=== PATIENT | female | born 1960 | race Caucasian/White ===

== ENCOUNTER 2017-12-21 18:41 | Inpatient (IN) | payer OTHER ==
--- NOTE | 2017-12-21 19:17 | ED ---
Benji Alvarez Tiffany, scribed for Chaz Mera MD on 12/21/17 at 1858 . Neurological HPI - HPI Summary HPI Summary: 57 year old Alondra TOBIAS from [place] [facility] to [facility] complains of reoccurring focal seizures for two days. Symptoms aggravated by nothing. Symptoms alleviated by nothing. Given Keppra and Ativan [facility]. Hx seizure since 2002. On Keppra. - History of Current Complaint Chief Complaint: EDSeizure Stated Complaint: SEIZURES Time Seen by Provider: 12/21/17 18:48 Hx Obtained From: Patient Onset/Duration: Resolved, Worse Since - 2 days ago Aggravating: Nothing Alleviating: Nothing - Allergy/Home Medications Allergies/Adverse Reactions: Allergies Allergy/AdvReac Type Severity Reaction Status Date / Time topiramate [From Topamax] Allergy Itching Verified 12/21/17 18:50 Home Medications: Home Medications Brivaracetam [Briviact] 50 mg PO BID 12/21/17 [History Confirmed 12/21/17] Naproxen [Naproxen 500 mg tab] 500 mg PO Q12H 12/21/17 [History Confirmed ] levETIRAcetam TAB* [Keppra TAB*] 1,000 mg PO BID 12/21/17 [History Confirmed 01/31] PMH/Surg Hx/FS Hx/Imm Hx Previously Healthy: No Endocrine/Hematology History: Denies: Hx Diabetes Sensory History: Denies: Hx Deafness EENT History: Denies: Hx Deafness Neurological History: Reports: Hx Seizures - Since 2002, Other Neuro Impairments /Disorders - Hx intracranial hemorrhage in 1999 - Surgical History Surgery Procedure, Year, and Place: Craniotomy in 1999 Infectious Disease History: No Infectious Disease History: Denies: Traveled Outside the [place] in Last 30 Days - Family History Known Family History: Positive: Other - Reviewed and non-contributory - Social History Alcohol Use: None Hx Substance Use: No Substance Use Type: Reports: None Hx Tobacco Use: Yes Smoking Status (MU): Smoker, Current Status Unknown Review of Systems Negative: Fever Neurological: Other - Seizure All Other Systems Reviewed And Are Negative: Yes Physical Exam - Summary Physical Exam Summary: VITAL SIGNS: Reviewed. GENERAL: Patient is a well-developed and nourished female who is lying comfortable in the stretcher. Patient is not in any acute respiratory distress. She is slow in response. HEAD AND FACE: No signs of trauma. No ecchymosis, hematomas or skull depressions. No sinus tenderness. EYES: PERRLA, EOMI x 2, No injected conjunctiva, no nystagmus. EARS: Hearing grossly intact. Ear canals and tympanic membranes are within normal limits. MOUTH: Oropharynx within normal limits. NECK: Supple, trachea is midline, no adenopathy, no JVD, no carotid bruit, no c- spine tenderness, neck with full ROM. CHEST: Symmetric, no tenderness at palpation LUNGS: Clear to auscultation bilaterally. No wheezing or crackles. CVS: Regular rate and rhythm, S1 and S2 present, no murmurs or gallops appreciated. ABDOMEN: Soft, non-tender. No signs of distention. No rebound no guarding, and no masses palpated. Bowel sounds are normal. EXTREMITIES: FROM in all major joints, no edema, no cyanosis or clubbing. NEURO: Alert and oriented x 3. No acute neurological deficits. Speech is normal and follows commands. SKIN: Dry and warm Triage Information Reviewed: Yes Vital Signs On Initial Exam: Initial Vitals Temp Pulse Resp BP Pulse Ox 99.2 F 97 15 106/72 96 12/21/17 18:46 12/21/17 18:46 12/21/17 18:46 12/21/17 18:46 12/21/17 18:46 Vital Signs Reviewed: Yes Diagnostics - Vital Signs Vital Signs Temp Pulse Resp BP Pulse Ox 12/21/17 18:46 99.2 F 97 15 106/72 96 - Laboratory Lab Statement: Any lab studies that have been ordered have been reviewed, and results considered in the medical decision making process. Course/Dx - Course Assessment/Plan: This patient is a 57-year-old female with history of seizures KEPPRA [facility] Apparently the patient continues to have partial seizures when she has the twitching of the upper extremities and and stares blank. Patients has been having multiple episodes since this morning.. Chest x-ray which is read by radiology no acute pathology. X-ray of the hip and pelvis with no fracture dislocation. Patient also had a head CT which shows no acute pathology. Blood work without any significant abnormality except for WBCs of 10.9, no bands, CK of 607. EKG shows a sinus tachycardia 112 bpm without any stimulations. The patient was accepted by Dr. Chang for the transfer to the emergency department. He reports that Dr. Vang is aware and he requested a EEG. Plan the ER course the patient is hemodynamically stable and she is alert and oriented 3. The patient was given IV Keppra and Ativan at Hospital. At this time I discussed the case with Dr. Vang and he requests for the patient to be admitted to the hospitalist and to get an EEG tomorrow morning. I discussed the case with Dr. Severino from the hospitalist services and accepted the patient for admission. - Differential Dx Differential Diagnoses Neuro: Positive: Cerebrovascular Accident, Seizure Disorder, Transient Ischemic Attack - Diagnoses Provider Diagnoses: Seizures Discharge - Sign-Out/Discharge Documenting (check all that apply): Discharge/Admit/Transfer - Discharge Plan Condition: Stable Disposition: ADMITTED TO [facility] Referrals: No Primary Care Phys,NOPCP [Primary Care Provider] - - Billing Disposition and Condition Condition: STABLE Disposition: Admitted to [facility] The documentation as recorded by the Benji sales Tiffany accurately reflects the service I personally performed and the decisions made by me, Chaz Mera MD.
[2017-12-21] MEDS ORDERED: Ondansetron 40 MG VIAL* 2 MG/ML 20 ML VIAL IV PRN (20:11)
[2017-12-21] MEDS ORDERED: LORazepam INJ* 2 MG/ML 1 ML VIAL IV PUSH PRN (20:11)
[2017-12-21] MEDS ORDERED: levETIRAcetam TAB* 500 MG PO SCH ×2 (20:13→21:00)
[2017-12-21] MEDS ORDERED: Albuterol 2.5 MG/3 ML NEB.SOL* (0.083%) INH PRN (20:36)
[2017-12-21 21:08] LABS: ABS Basophils 0 10^3/ul (0-0.2); ABS Eosinophils 0.1 10^3/ul (0-0.6); ABS Lymphocytes 1.2 10^3/ul (1.0-4.8); ABS Monocytes 0.8 10^3/ul (0-0.8); ABS Neutrophils 7.2 10^3/ul (1.5-7.7); ABS Nucleated RBC 0 10^3/ul; Eosinophil % 0.9 % (0-6); Hematocrit 41 % (35-47); Hemoglobin 13.8 g/dl (12.0-16.0); Lymphocyte % 12.7 % (25-47); Mean Corpuscular HGB Conc 34 g/dl (31-36); Mean Corpuscular Hemoglobin 33 pg (27-31); Mean Corpuscular Volume 96 fL (80-97); Mean Platelet Volume 8.8 um3 (7.4-10.4); Nucleated Red Blood Cells % 0.1; Platelet Count 227 10^3/ul (150-450); Red Blood Count 4.23 10^6/ul (4.0-5.4); Red Cell Distribution Width 13 % (10.5-15); White Blood Count 9.3 10^3/ul (3.5-10.8)
[2017-12-21] MEDS: levETIRAcetam TAB* 500 MG PO SCH ×2 (21:08→22:25)
--- NOTE | 2017-12-21 21:12 | RAD ---
Indication: Fall, hip pain. CT of the pelvis was performed in the axial plane. Sagittal and coronal reconstructed images were obtained. The sacrum demonstrates no fracture although there is angulation of the coccygeal segment. This is likely chronic changes. The visualized lumbar spine demonstrates no fracture of the bilateral defects are noted in the pars interarticularis bilaterally consistent with spondylolysis. The pelvic ring is intact. No fracture of the superior inferior pubic rami is noted. No fracture of the femur is noted. IMPRESSION: No fracture of the sacrum or coccyx is noted. No fracture of the pelvis or hips are noted. Defect in the pars interarticularis at L5 bilaterally consistent with bilateral spondylolysis.
[2017-12-21 21:26] LABS: EGFR Non-African American 80.2 (>60)
[2017-12-21 21:37] LABS: Urine Appearance Cloudy; Urine Blood 2+ (Negative); Urine Color Yellow; Urine Ketones 1+ (Negative); Urine Protein 1+(30 mg/dL) (Negative); Urine Specific Gravity 1.021 (1.010-1.030); Urine Urobilinogen Negative (Negative)
[2017-12-21] MEDS: BRIVARACETAM 50 MG PO SCH (22:29)
[2017-12-21] MEDS: NS 0.9% 1000 ML* 1,000 ML IV SCH ×2 (22:31→23:15)
[2017-12-21] MEDS: Nicotine PATCH 14 MG/24 HR* PATCH TRANSDERM SCH (22:32)
--- NOTE | 2017-12-22 00:20 | PN ---
Hospitalist Progress Note Date of Service: 12/22/17 Called to bedside as patient having episodes of frequent tremors. Patient will be talking and a and o times three than will have episode of becoming noverbal and eyes closing where her lip starts to quiver and right arm starts to have tremor as well. The episodes last 1 minute she has had 8 episodes now. Gave 0.5 mg ativan to attempt to break cycle however pt continued with another episode. Call Dr Vang giving depakote. After these episode patient is awake and alert. and none focal. Call my attending to bedside to fransico. He agrees that this could be partial seizure. will try depakote and continue to follow.
[2017-12-22] MEDS ORDERED: Valproic Acid IV(*) 750 MG in NS 0.9% 100 ML* 100 ML IVPB ONE (00:30)
[2017-12-22] MEDS ORDERED: cefTRIAXone(*) 1 GM in NS 0.9% 50 ML* 50 ML IVPB SCH (00:30)
--- NOTE | 2017-12-22 02:32 | HP ---
CC: Dr. Mishra; Dr. Vang; Dr. Branch * HISTORY AND PHYSICAL: DATE OF ADMISSION: 12/21/17 PRIMARY CARE PROVIDER: Dr. Mishra [facility]. ATTENDING PHYSICIAN WHILE IN THE HOSPITAL: Dr. Froylan Severino * report dictated by Ac Looney NP). CONSULTING NEUROLOGIST: Dr. Vang. PRIMARY NEUROLOGIST: Dr. Branch. CHIEF COMPLAINT: Seizures. HISTORY OF PRESENT ILLNESS: Ms. Briones is a 57-year-old female patient with a known history of seizures. She said she also has a history of COPD and depression. She said she has been having seizures since 2002. According to the Neurology notes, she underwent a craniotomy for evacuation of a hematoma. She has had intermittent seizures since then. However, since in the middle of beginning of this year, she has had about 20 to 30 seizures according to the seizure log that she had given to Dr. Branch. She had been taking Keppra. In addition to this, also taking Briviact. She states that over the last 2 to 3 days, she has been having again increasing seizure-like activity. She says that she does get an aura with these episodes sometimes, sometimes she remembers when these seizures occur and other times she does not. She says she has fallen recently with these seizure activities. She said that she has not had any recent fevers, chills. There has been no vomiting, abdominal pain. No dysuria or frequency. She does state that at times she does have a headache prior to the seizure. She says that she is really unable to tell me how many she has had. She definitely thinks that she has had at least 3. Her friend was concerned that was with her today and basically brought her to [facility] and she was transferred here for further neurological care. She has had EEGs in the past. They have showed epileptic discharges. Her last EEG that I have access to is from 2016, which showed slow wave discharge consistent with complex partial epilepsy. She did hit her head in March of last fall and she was seen in our ER for that, but no other head trauma was reported to me today. She says she has been taking her medications. She denies any illicit drug use or any alcohol abuse, but because of the increasing frequency of seizure, she came to our ER and we were asked to evaluate for admission. PAST MEDICAL HISTORY: Significant for: 1. Seizures. 2. Depression. 3. COPD. 4. She has had intracranial hematoma. PAST SURGICAL HISTORY: 1. She has had a craniotomy. 2. Tubal ligation. MEDICATIONS: Home medications include: 1. Keppra 1000 mg p.o. b.i.d. 2. Briviact 50 mg p.o. b.i.d. 3. Naproxen 500 mg p.o. every 12 hours. ALLERGIES TO MEDICATIONS: She is denying. FAMILY HISTORY: Mother had a history of cancer and father had a history of diabetes. SOCIAL HISTORY: She does smoke about half a pack a day. She has been smoking since she was about 17. She does not drink alcohol. She denied recreational drug abuse. REVIEW OF SYSTEMS: There was no documented fever. She denies having any significant weight change. There is no double vision. She denies having any significant ear discharge. She denies having any rhinorrhea. No sore throat. No thyroid enlargement. Denies having any chest pain. There is no orthopnea. She denies having any nocturnal dyspnea. There is no abdominal pain. There is no nausea, no vomiting. There is no dysuria, no frequency. There was seizure that has been intermittent and episode of loss of consciousness. Review of 14 systems completed, all others negative. PHYSICAL EXAMINATION GENERAL: At this time, Ms. Briones is a 57-year-old female patient. She is sitting in the ED stretcher. She does not appear to be in any acute distress. VITAL SIGNS: Blood pressure 106/71, pulse 97, respirations were 15, O2 sat 96% , temperature 99.2. HEENT: Head: Atraumatic, normocephalic. Eyes: EOMs are intact. Sclerae anicteric and not pale. Throat: Oral mucosa appears to be moist. No oropharyngeal erythema. NECK: Supple. LUNGS: Clear. No wheezes, rales, or rhonchi. HEART: Sounds S1, S2. She does have a regular rate and rhythm. No murmurs, rubs, or gallops. ABDOMEN: Soft, flat, nontender. Bowel sounds are present. EXTREMITIES: Pulses are 2+ throughout. She does have a significant amount of pain with lifting the left lower extremity off the bed. It is mostly in the groin and pelvic area when she does this. No peripheral edema and distal CSM checks are intact. NEUROLOGIC: She has had intermittent episodes, while I was examining her, where she does start picking and pulling at things where she just saying words, but they are nonsensical and not in context. In addition to this, it is noted when she has one of these episodes, they last a minute to two minutes, then she is out of it and she is awake, alert, and oriented x3, but when she does have these episodes, it is noted that her heart rate goes up to 100s and she is nonfocal. There was 1 episode that she had with me where her lips were quivering and her knees appeared to be shaking. When she is out of the episode , she is awake, alert, she is oriented x3. Her speech is clear. Her tongue is midline. She had [id number] intact bilaterally. Aovb-nq-ikms intact bilaterally with the exception on the left side because it caused her significant pain to move that leg, but there were no gross focal deficits. SKIN: Intact. She does have ecchymosis to bilateral knees. DIAGNOSTIC STUDIES/LAB DATA: Labs, these are from [facility], are revealing a WBC of 10.9, RBC of 4.21, hemoglobin 13.7, hematocrit of 40, platelet count is 219. Glucose is 101, BUN 12, creatinine of 0.7, her sodium was 135, potassium is 4.1, chloride of 98, bicarb 26, calcium 8.7. AST 29, ALT 29, alk phos 160. Her CK was 607. Troponin was negative. Keppra level was pending. She did have pelvis x-ray, which shows degenerative changes without acute fracture or dislocation noted on the single frontal view. Chest x-ray showed limited study, does not demonstrate evidence of significant acute pulmonary disease. She had a CT brain without contrast, showed no evidence of acute intracranial pathology. She did have an EKG over there as well, which is showing sinus tachycardia with a rate of 112, no ST elevations or T-wave inversions were noted. Old medical records were reviewed. ASSESSMENT AND PLAN: Ms. Briones is a 57-year-old female patient with a history of seizure, also with a history of intracranial hematoma, status post craniotomy. She has been having intermittent seizures since 2002; however, over the last several months, she has had increasing frequency of seizures particularly over the last 2 to 3 days. We were asked to evaluate for admission. She will be admitted under inpatient status for: 1. Seizures. At this point, I did touch base with Dr. Vang. She got 500 mg IV at [facility] and she got 0.[address] Vang recommended giving another gram of Keppra here tonight p.o. She is able to take p.o. Continue her Briviact. In addition to this, I am sending off levels. CT brain was negative. We will get an EEG tomorrow. I am repeating labs, checking her CK at it was mildly elevated. I will check her Keppra level. Get the TSH in addition to this and check UA to make sure there is no underlying infection and we will continue to follow her. I have ordered seizure precautions and neurological checks. I am placing her on telemetry and again Neuro will be following. If she continues to have seizures throughout the night, then certainly we will reevaluate and see if Neuro wants to add on any agents, but at this point because she had these symptoms, the episodes are short lasting and she is not really postictal afterwards, we felt that we will continue her meds for now and observe. 2. Depression. Continue meds as prescribed and supportive care. 3. History of chronic obstructive pulmonary disease. I will order p.r.n. albuterol and I did order nicotine patch. 4. Tobacco abuse. I will order nicotine patch. 5. DVT prophylaxis. Because of history of intracranial hemorrhage, just going to put her on heparin subcu. 6. Code status. Full code. 7. Fluids, electrolytes, nutrition. She can have a regular diet. TIME SPENT: On admission was 60 minutes, greater than half of the time was spent [id number] with the patient obtaining my history and physical; other half of the time was spent going over the plan of care with the patient, implementing plan of care. I did discuss the plan of care with my attending, Dr. Severino; he is in agreement. AC LOONEY, KENNY [id number]/CPS #: [id number] [facility] CENTERHaim
[2017-12-22 05:38] LABS: ABS Basophils 0.1 10^3/ul (0-0.2); ABS Eosinophils 0.1 10^3/ul (0-0.6); ABS Lymphocytes 1.8 10^3/ul (1.0-4.8); ABS Monocytes 0.8 10^3/ul (0-0.8); ABS Neutrophils 9.7 10^3/ul (1.5-7.7); ABS Nucleated RBC 0 10^3/ul; Hematocrit 37 % (35-47); Hemoglobin 12.5 g/dl (12.0-16.0); Lymphocyte % 14.4 % (25-47); Mean Corpuscular HGB Conc 34 g/dl (31-36); Mean Corpuscular Hemoglobin 32 pg (27-31); Mean Corpuscular Volume 96 fL (80-97); Mean Platelet Volume 8.5 um3 (7.4-10.4); Nucleated Red Blood Cells % 0; Platelet Count 221 10^3/ul (150-450); Red Cell Distribution Width 13 % (10.5-15); White Blood Count 12.5 10^3/ul (3.5-10.8)
[2017-12-22 05:50] LABS: INR 1.06 (0.77-1.02)
[2017-12-22 05:58] LABS: EGFR Non-African American 81.5 (>60)
[2017-12-22] MEDS ORDERED: Dextrose 50% VIAL 50 ml IV PRN (06:01)
[2017-12-22] MEDS ORDERED: Dextrose 50% Syringe 50 ML* 25 GM/50 ML SYRINGE IV PUSH PRN ×2 (06:01→17:45)
[2017-12-22] MEDS ORDERED: Dextrose 50% Syringe 50 ML* 25 GM/50 ML SYRINGE ONE ×2 (06:05→17:49)
[2017-12-22] MEDS ORDERED: NS 0.9% 1000 ML* 1,000 ML IV SCH (07:45)
[2017-12-22] MEDS: BRIVARACETAM 50 MG PO SCH (08:18)
[2017-12-22] MEDS: levETIRAcetam TAB* 500 MG PO SCH (08:20)
[2017-12-22] MEDS: Nicotine PATCH 14 MG/24 HR* PATCH TRANSDERM SCH (08:20)
--- NOTE | 2017-12-22 10:41 | PN ---
Subjective Date of Service: 12/22/17 Interval History: Pt had a glucose level of 36 this aM. Has had waxing and waning mental state with periods of lethargy Objective Active Medications: Acetaminophen (Tylenol Tab*) 650 mg PO Q4H PRN PRN Reason: FEVER/PAIN Albuterol (Ventolin 2.5 Mg/3 Ml Neb.Karen*) 2.5 mg INH Q2H PRN PRN Reason: SOB/WHEEZING Dextrose (D50w Syringe 50 Ml*) 25 gm IV PUSH ONCE PRN PRN Reason: BG < 60 Ceftriaxone Sodium 1 gm/ (Sodium Chloride) 50 mls @ 200 mls/hr IVPB Q24H [facility] Last Admin: 12/22/17 01:54 Dose: 200 mls/hr Sodium Chloride (Ns 0.9% 1000 Ml*) 1,000 mls @ 75 mls/hr IV PER RATE [facility] Last Admin: 12/22/17 08:20 Dose: 75 mls/hr Valproic Acid 500 mg/ Sodium (Chloride) 105 mls @ 210 mls/hr IVPB Q8H [facility] Levetiracetam (Keppra Tab*) 1,000 mg PO BID [facility] Last Admin: 12/22/17 08:20 Dose: 1,000 mg Lorazepam (Ativan Inj*) 0.5 mg IV PUSH ONCE PRN PRN Reason: AGITATION Stop: 12/22/17 20:10 Nicotine (Nicotine Patch 14 Mg/24 Hr*) 1 patch TRANSDERM DAILY [facility] Last Admin: 12/22/17 08:20 Dose: 1 patch (Brivaracetam [ (Briviact] 50 Mg)) 50 mg PO BID [facility] Last Admin: 12/22/17 08:18 Dose: Not Given Ondansetron HCl (Zofran 40 Mg Vial*) 4 mg IV Q6H PRN PRN Reason: NAUSEA Pharmacy Profile Note (Nicotine Patch Removal Note*) 1 note PATCH OFF 2100 [facility] Vital Signs - 8 hr 12/22/17 12/22/17 03:36 07:29 Temperature 99.5 F 97.7 F Pulse Rate 97 85 Respiratory 22 16 Rate Blood Pressure 111/53 133/57 (mmHg) O2 Sat by Pulse 96 100 Oximetry Oxygen Devices in Use Now: Nasal Cannula Appearance: 57 yo F in nAD, appears to be sleeping, AAOx2 Eyes: No Scleral Icterus, PERRLA Ears/Nose/Mouth/Throat: NL Teeth, Lips, Gums, Mucous Membranes Moist Neck: NL Appearance and Movements; NL JVP, Trachea Midline Respiratory: Symmetrical Chest Expansion and Respiratory Effort, Clear to Auscultation Cardiovascular: NL Sounds; No Murmurs; No JVD Abdominal: NL Sounds; No Tenderness; No Distention, No Hepatosplenomegaly Lymphatic: No Cervical Adenopathy Extremities: No Edema, No Clubbing, Cyanosis Skin: No Rash or Ulcers, No Nodules or Sclerosis Neurological: NL Muscle Strength and Tone Result Diagrams: 12/22/17 05:24 12/22/17 05:24 Assess/Plan/Problems-Billing Assessment: 57 yo F wi h/o TBI and seizures presents with multiple seizures and now status epilepticus - Patient Problems (1) Status epilepticus Comment: transfer to ICU for EG monitoring D/w DR. Vang Tx with Depakote IV in addition to Keppra (2) Hypoglycemia Comment: sugar to 36 this AM, possiblly due to mental status changes and not eating well.Cont checking BG Q4H (3) DVT prophylaxis Comment: low risk
[2017-12-22] MEDS: Valproic Acid IV(*) 500 MG in NS 0.9% 100 ML* 100 ML IVPB SCH ×3 (11:05→17:19)
[2017-12-22] MEDS: D5NS 0.9% 1000 ML BAG* 1,000 ML IV SCH ×2 (13:04→22:41)
[2017-12-22] MEDS ORDERED: LORazepam INJ* 2 MG/ML 1 ML VIAL IV PUSH ONE (16:45)
[2017-12-22] MEDS: LORazepam INJ* 2 MG/ML 1 ML VIAL ONE (17:06)
[2017-12-22] MEDS ORDERED: Valproic Acid IV(*) 500 MG in NS 0.9% 100 ML* 100 ML IVPB ONE (17:30)
[2017-12-22] MEDS: levETIRAcetam IV* 750 MG in NS 0.9% 100 ML* 100 ML IVPB SCH (21:09)
[2017-12-22] MEDS: Nicotine Patch Removal NOTE PATCH OFF SCH (21:11)
--- NOTE | 2017-12-22 22:41 | EEG ---
CC: Dr. Ryan Branch * ELECTROENCEPHALOGRAPHY: DATE OF STUDY: 12/22/17 LOCATION: She is an inpatient in room 440. REFERRING PROVIDER: Ac Looney NP CLINICAL PROBLEM: History of epilepsy, the patient was admitted last evening with confusion and intermittent responsiveness. MEDICATIONS: Include: 1. Brivaracetam. 2. Levetiracetam. 3. Ceftriaxone. 4. Ondansetron. 5. Valproic acid. REPORT: This 16-channel EEG is remarkable for background rhythms at the beginning of the tracing consisting of buildup of rhythmic sharp waves from the right mid to frontal temporal region, which appears to be an ictal discharge. This subsides and there is some suppression of background rhythms and a few phases reversing right mid temporal sharp waves. The patient was observed to occasionally smack lips or chew. Independently, there is a left mid temporal phase reversing sharp wave and slow wave discharge seen to a much lesser degree of abundance. The patient intermittently has rhythmic buildup of right mid to anterior temporal sharp wave discharges, which then subsides and becomes more depressed. The examiner talked to the patient later in the tracing and during periods of electrographic inactivity, she was able to briefly respond. It was decided at that point to terminate the tracing and transfer the patient to the intensive care unit for continuous monitoring. CLINICAL IMPRESSION: Abnormal EEG due to frequent epileptiform discharges from the right temporal region and less frequent but independent epileptiform discharges from the left temporal region. 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 [id number]/[facility] #: [id number] PREM
--- NOTE | 2017-12-22 22:50 | CONS ---
CC: Dr. Branch * NEUROLOGY CONSULTATION: DATE OF CONSULT: 12/22/17 LOCATION: She is an inpatient in ICU bed 7. REFERRING PROVIDER: Ac Looney NP. CHIEF COMPLAINT: Seizures. HISTORY OF PRESENT ILLNESS: Clara Briones is a 57-year-old woman with history of epilepsy reportedly since 2002. I do not have full records, but apparently, she saw Dr. Hilario in the past and was discharged from the practice in 2004 apparently for noncompliance. She was in the hospital in [address] Leo Lange in consultation because of confusion and seizures. She was living in [place] and moved back this past fall. She saw Dr. Branch in our office in consultation in March. He listed the history of epilepsy and that she was on Keppra monotherapy 1000 mg twice per day. He subsequently received some records from [place]. The records that I was able to look at showed that she had a normal MRI scan of the brain. I did not review the full extent of the records, otherwise. Reportedly, she had an intracranial hemorrhage in 2002. Reportedly, she had a surgery, but there has been no evidence of any type of skull defect on examination. A CAT scan report from 11/23 when she was here with seizures was interpreted as normal again without any intraaxial or cranial defects noted. In any case, she reports to me today that her seizures started in 2002. She is pretty somnolent, but she is able to answer questions. She says that she has never gone a year without seizures. She does not know the name of her antiseizure medicine, but says that her [facility] support person visits her often and they fill out her pillbox every week. She was put on Briviact by Dr. Branch in October. She does not recognize the name of that medication either, but says that she takes her medications reliably. She presented to [facility] Emergency Room yesterday. She was acting confused and apparently picking at things and because of the concern of seizures , she was transferred to our hospital. Yesterday evening, she was able to answer questions for the emergency room physician and also for Ac Looney, who admitted her for the hospitalist service. This morning during an EEG, I was called and she was minimally responsive, answering rare single response questions. Her EEG showed frequent epileptiform discharges occurring independently from both hemispheres I believe. She is now in the intensive care unit being monitored. Currently, her EEG looks much better. She does have occasional left mid to posterior temporal sharp wave discharges. I was eliciting history from her and she was responding appropriately and then she did not respond to one question and when I went to look at the EEG, she in fact had a brief discharge of left temporal sharp waves. PAST MEDICAL HISTORY: Limited, but notable for depression, epilepsy, COPD. Reportedly, an intracranial hemorrhage, although we do not have good validation of that history. MEDICATIONS AT ADMISSION: 1. Keppra 1000 mg p.o. b.i.d. 2. Briviact 50 mg p.o. b.i.d. 3. Naproxen 500 mg q.12 hours. ALLERGIES: She apparently has an allergic reaction to TOPIRAMATE, but it is not clear if it was an allergic reaction or just paresthesias and itching. ____ _ I ask her today if she has any drug allergies, she says none that she is aware of. SOCIAL HISTORY: She is from her and apparently children who I believe are still in [place]. She lives alone and has a care provider from [facility], who visits her often and helps with her medications and getting to doctor's appointments. REVIEW OF SYSTEMS: Negative for headaches, tongue biting, recent infections. It is otherwise very limited and she is still pretty somnolent. According to Ac Looney's admission, she denied chest pain, difficulty breathing or GI symptoms. She denied change in weight. PHYSICAL EXAM: She is somnolent, lying in the intensive care unit bed, but arouses to voice. She has EEG leads placed, and so I did not examine her scalp. She appears well hydrated. Heart is in a regular rhythm without murmurs. There are no cervical bruits. Oral mucosa is moist and I do not see any evidence of having bit her tongue. Temperature is 99.4 temporally, was 100.5 orally yesterday when she came in. Blood pressure most recently 103/64, heart rate in the 80s and regular on the monitor. Respiratory rate is 19 and oxygen saturation is 94%. Neurologically, pupils are slightly unequal with the right being about a millimeter larger than the left, but both react to light. Eye movements are choppy, but full. Facial musculature is symmetric. She is able to answer questions coherently. She does stop speaking at one point and that is when there appears to be some left temporal lobe discharges. DIAGNOSTIC STUDIES/LAB DATA: Includes a CBC from this morning, which is notable for white blood cell count of 12.5, otherwise unremarkable. INR 1.06. Chemistries this morning notable for glucose of 36. Sodium was 137, alkaline phosphatase 132. Creatine kinase was 450 this morning. Liver enzymes otherwise normal. Urinalysis notable for 1+ protein, 1+ ketones, 2+ blood, 3+ red blood cells. IMPRESSION AND PLAN: Impression is that of apparent medically refractory epilepsy. It is not clear to me that she had been tried on a number of anticonvulsants, if so which ones other than Briviact and Keppra and possibly topiramate. Given that Briviact and Keppra are both in the same family, I recommend stopping Briviact and continuing Keppra and valproic acid, which was started last night. Recommend checking a valproic acid level in the morning. I may continue continuous EEG monitoring or may stop it by the end of the day depending upon her course. Currently, she is having much less epileptiform activity on her EEG and she is coherent most of the time. I will continue to follow her today. I will sign her off to Dr. Krueger this evening. She will need further evaluation including possible workup for surgically remediable epilepsy in the future as well. [id number]/[facility] #: [id number] [facility] SYSTEM[facility]aim
[2017-12-23] MEDS: Valproic Acid IV(*) 500 MG in NS 0.9% 100 ML* 100 ML IVPB SCH (02:23)
[2017-12-23] MEDS: levETIRAcetam IV* 750 MG in NS 0.9% 100 ML* 100 ML IVPB SCH (05:26)
[2017-12-23 06:28] LABS: EGFR Non-African American 91.4 (>60)
[2017-12-23 06:30] LABS: Hematocrit 38 % (35-47); Hemoglobin 12.5 g/dl (12.0-16.0); Mean Corpuscular HGB Conc 33 g/dl (31-36); Mean Corpuscular Hemoglobin 33 pg (27-31); Mean Corpuscular Volume 97 fL (80-97); Red Blood Count 3.86 10^6/ul (4.0-5.4); Red Cell Distribution Width 14 % (10.5-15); White Blood Count 9.3 10^3/ul (3.5-10.8)
[2017-12-23 06:58] LABS: ABS Basophils 0 10^3/ul (0-0.2); ABS Eosinophils 0.2 10^3/ul (0-0.6); ABS Lymphocytes 1.6 10^3/ul (1.0-4.8); ABS Monocytes 0.8 10^3/ul (0-0.8); ABS Neutrophils 6.7 10^3/ul (1.5-7.7); ABS Nucleated RBC 0 10^3/ul; Eosinophil % 2.5 % (0-6); Lymphocyte % 16.7 % (25-47); Nucleated Red Blood Cells % 0.1; Platelet Count 170 10^3/ul (150-450)
[2017-12-23] MEDS ORDERED: LORazepam TAB(*) 0.5 MG PO PRN (08:20)
[2017-12-23] MEDS ORDERED: LORazepam INJ* 2 MG/ML 1 ML VIAL ONE (08:53)
[2017-12-23] MEDS: LORazepam INJ* 2 MG/ML 1 ML VIAL ONE (08:56)
[2017-12-23] MEDS ORDERED: levETIRAcetam 500 MG IVPREMIX* 500 MG/100 ML BAG IV ONE (09:00)
[2017-12-23] MEDS ORDERED: LORazepam INJ* 2 MG/ML 1 ML VIAL IV PUSH ONE (10:00)
[2017-12-23] MEDS: D5NS 0.9% 1000 ML BAG* 1,000 ML IV SCH ×2 (10:27→21:05)
[2017-12-23] MEDS: Nicotine PATCH 14 MG/24 HR* PATCH TRANSDERM SCH (11:16)
[2017-12-23] MEDS ORDERED: Valproic Acid IV(*) 250 MG in NS 0.9% 100 ML* 100 ML IVPB ONE (12:00)
[2017-12-23] MEDS: Pantoprazole IV* 40 MG IV SCH (12:15)
--- NOTE | 2017-12-23 12:51 | PN ---
Subjective Date of Service: 12/23/17 Interval History: Pt was treated with a dose of Ativan in aM due to abnormal EEG. Later on more awake and conversational. Able to tell me that on average she has approx 10 tonic clonic seizures /month and 20 seizures total in a week. Including "small seizures" she she stares in the space . Her brother knows that pt is here, but pt dose not want to bother" her 2 sisters One of her sisters was working on getting her a mobile home mechanic, but till now pt had been living alone with her dog. Objective Active Medications: Acetaminophen (Tylenol Tab*) 650 mg PO Q4H PRN PRN Reason: FEVER/PAIN Albuterol (Ventolin 2.5 Mg/3 Ml Neb.Karen*) 2.5 mg INH Q2H PRN PRN Reason: SOB/WHEEZING Dextrose (D50w Syringe 50 Ml*) 25 gm IV PUSH .FOR FS<90 PRN PRN Reason: FS < 60 Last Admin: 12/23/17 03:57 Dose: 25 gm Heparin Sodium (Porcine) (Heparin Vial(*)) 5,000 units SUBCUT Q8HR [facility] Dextrose/Sodium Chloride (D5ns 0.9% 1000 Ml Bag*) 1,000 mls @ 100 mls/hr IV PER RATE [facility] Last Admin: 12/23/17 10:27 Dose: 100 mls/hr Levetiracetam 1,000 mg/ Sodium (Chloride) 110 mls @ 440 mls/hr IVPB TID [facility] Levetiracetam 750 mg/ Sodium (Chloride) 107.5 mls @ 430 mls/hr IVPB ONCE ONE Stop: 12/23/17 14:14 Valproic Acid 500 mg/ Sodium (Chloride) 105 mls @ 105 mls/hr IVPB ONCE ONE Stop: 12/23/17 19:29 Valproic Acid 500 mg/ Sodium (Chloride) 105 mls @ 105 mls/hr IVPB TID [facility] Lorazepam (Ativan Tab(*)) 0.5 mg PO Q4H PRN PRN Reason: seizure Nicotine (Nicotine Patch 14 Mg/24 Hr*) 1 patch TRANSDERM DAILY [facility] Last Admin: 12/23/17 11:16 Dose: 1 patch Ondansetron HCl (Zofran 40 Mg Vial*) 4 mg IV Q6H PRN PRN Reason: NAUSEA Pantoprazole Sodium (Protonix Iv*) 40 mg IV Q24H [facility] Last Admin: 12/23/17 12:15 Dose: 40 mg Pharmacy Profile Note (Nicotine Patch Removal Note*) 1 note PATCH OFF 2100 [facility] Last Admin: 12/22/17 21:11 Dose: 1 note Vital Signs - 8 hr 12/23/17 12/23/17 12/23/17 05:00 05:31 06:00 Temperature Pulse Rate 120 91 91 Respiratory 23 17 20 Rate Blood Pressure 149/72 107/56 123/63 (mmHg) O2 Sat by Pulse 94 95 96 Oximetry 12/23/17 12/23/17 12/23/17 07:00 08:00 09:00 Temperature 98.2 F Pulse Rate 83 87 80 Respiratory 18 19 19 Rate Blood Pressure 109/59 113/68 139/68 (mmHg) O2 Sat by Pulse 92 95 98 Oximetry 12/23/17 12/23/17 12/23/17 09:02 10:00 11:00 Temperature Pulse Rate 78 79 Respiratory 27 20 18 Rate Blood Pressure 101/60 118/69 (mmHg) O2 Sat by Pulse 97 96 Oximetry 12/23/17 12:00 Temperature 100.5 F Pulse Rate Respiratory Rate Blood Pressure (mmHg) O2 Sat by Pulse Oximetry Oxygen Devices in Use Now: None Appearance: 57 yo F in nAD, aAOx3 Eyes: No Scleral Icterus, PERRLA Ears/Nose/Mouth/Throat: NL Teeth, Lips, Gums, Mucous Membranes Moist Neck: NL Appearance and Movements; NL JVP, Trachea Midline Respiratory: Symmetrical Chest Expansion and Respiratory Effort, Clear to Auscultation Cardiovascular: NL Sounds; No Murmurs; No JVD, RRR Abdominal: NL Sounds; No Tenderness; No Distention, No Hepatosplenomegaly Lymphatic: No Cervical Adenopathy Extremities: No Edema, No Clubbing, Cyanosis Skin: No Nodules or Sclerosis, - - large resolving ecchymoses on b/l buttocks Neurological: Alert and Oriented x 3, NL Muscle Strength and Tone Result Diagrams: 12/23/17 05:57 12/23/17 05:57 Assess/Plan/Problems-Billing Assessment: 57 yo F wiyh h/o TBI and seizures presents with multiple seizures and now status epilepticus - Patient Problems (1) Status epilepticus Comment: cont ICU for eEG monitoring D/w DR. Mora Tx with Depakote IV/Keppra titrated and monitored by neurology due to lethargy and low PO intake, placed on Protonix IV for GI prophylaxis Temp of 100.5 today, but cx negative, no leukocytosis. Cont to monitor on no antibiotics (2) Hypoglycemia Comment: due to lethargy/seizures/not eating Cont D5 infusion and fingersticks Q4H (3) Increased ammonia level Comment: suspect due to depakote. will treat with Lactulose x 1 dose, cont to monitor (4) DVT prophylaxis Comment: HSQ Status and Disposition: inpatient
[2017-12-23] MEDS: Dextrose 50% Syringe 50 ML* 25 GM/50 ML SYRINGE IV PUSH PRN ×2 (13:15→20:06)
[2017-12-23] MEDS ORDERED: levETIRAcetam IV* 750 MG in NS 0.9% 100 ML* 100 ML IVPB ONE (14:00)
--- NOTE | 2017-12-23 14:12 | EEG ---
[facility] VIDEO/EEG MONITORING - Monitoring Monitoring Start Date: 12/22/17 Current Monitoring Session: 12/22/17 at 11:33 to 12/23/17 at 09:51 EEG Clinical Indication: This is a 57 year old woman who was transferred from [facility] last evening for seizures. Pt was first diagnosed with seizures in 2002 after a craniotomy. No information as to where that procedure was done on the skull and no incisions noticed on patient skull. Since earlier this year, PT has noticed increased seizures. Pt sometimes has an aura but not always and usually has a headache prior to an episode. Pt will be midsentence and begin staring off, unable to speak, have lip quivering and tremors. These episodes last 30 seconds - 1minute. Pt is immediately back to baseline after an episode. 0.5mg Ativan given at 0000 12/22/17 to break cycle. She has also had hypoglycemia to 36. A routine EEG demonstrated recurrent right temporal seizures and long-term video EEG monitoring was requested to follow course of treatment. Introduction: INTRODUCTION: The EEG was monitored from 21 scalp electrodes. Nineteen electrodes consisted of the standard parasagittal, temporal and midline leads of the International 10 -20 system. In addition, special electrodes T1 and T2 were placed. EEG data were recorded on an [employer] system with simultaneous MPEG-4 digital video recording of patient behavior. EEG recording was in a monopolar montage with all electrodes referenced to FCz. Significant behavioral events were signaled by an event button, or putative electrical seizure events were detected by a computer program. All EEG data were reviewed in their entirety on a monitor with reconstruction of montages and adjustments of sensitivity and filtering. Simultaneous patient behavior was viewed on an adjacent monitor and correlated with the EEG. - Medications Active Medications: Acetaminophen (Tylenol Tab*) 650 mg PO Q4H PRN PRN Reason: FEVER/PAIN Albuterol (Ventolin 2.5 Mg/3 Ml Neb.Karen*) 2.5 mg INH Q2H PRN PRN Reason: SOB/WHEEZING Dextrose (D50w Syringe 50 Ml*) 25 gm IV PUSH .FOR FS<90 PRN PRN Reason: Fs < 90 Last Admin: 12/23/17 13:15 Dose: 25 gm Heparin Sodium (Porcine) (Heparin Vial(*)) 5,000 units SUBCUT Q8HR [facility] Dextrose/Sodium Chloride (D5ns 0.9% 1000 Ml Bag*) 1,000 mls @ 100 mls/hr IV PER RATE [facility] Last Admin: 12/23/17 10:27 Dose: 100 mls/hr Levetiracetam 1,000 mg/ Sodium (Chloride) 110 mls @ 440 mls/hr IVPB TID [facility] Levetiracetam 750 mg/ Sodium (Chloride) 107.5 mls @ 430 mls/hr IVPB ONCE ONE Stop: 12/23/17 14:14 Valproic Acid 500 mg/ Sodium (Chloride) 105 mls @ 105 mls/hr IVPB ONCE ONE Stop: 12/23/17 19:29 Valproic Acid 500 mg/ Sodium (Chloride) 105 mls @ 105 mls/hr IVPB TID [facility] Lorazepam (Ativan Tab(*)) 0.5 mg PO Q4H PRN PRN Reason: seizure Nicotine (Nicotine Patch 14 Mg/24 Hr*) 1 patch TRANSDERM DAILY [facility] Last Admin: 12/23/17 11:16 Dose: 1 patch Ondansetron HCl (Zofran 40 Mg Vial*) 4 mg IV Q6H PRN PRN Reason: NAUSEA Pantoprazole Sodium (Protonix Iv*) 40 mg IV Q24H [facility] Last Admin: 12/23/17 12:15 Dose: 40 mg Pharmacy Profile Note (Nicotine Patch Removal Note*) 1 note PATCH OFF 2100 [facility] Last Admin: 12/22/17 21:11 Dose: 1 note Prior to the monitoring starting, on the night of her admission on 12/21-12/22, she received valproic acid 750mg IV x1 then in the morning was started on 500mg Q8h. At 1645, she received lorazepam 1mg IV x1 and then an additional 500mg IV of valproic acid. In the morning on 12/23, she was given 2mg lorazepam IV, then an additional 500mg levetiracetam IV around 0930 and standing dose of levetiracetam was increased to 1gm TID. - Description Background: At the beginning of the recording, the background was markedly abnormal and consisted of frequent, recurrent ictal patterns as described below. When not seizing, the patient's background consisted of a sleep background with well- developed sleep spindles which were bilaterally synchronous and symmetrical. Once the ictal activity was reduced in frequency, the waking background showed appropriate organization with defined anterior-posterior voltage and frequency gradients. There was a defined posterior dominant rhythm of 8 Hertz, which was better noted over the left hemisphere. Anteriorly, there was the expected pattern of lower voltage and more irregular theta and beta rhythms. There was excess beta activity present diffusely, consistent with medication effect. There was polymorphic slowing which affected the bilateral temporal regions independently, left greater than right. Over the left hemisphere, the slowing was nearly continuous and characterized by 2 to 5 Hz polymorphic activity which was frequently associated with epileptiform discharges, as described below. At times, this was semi-rhythmic in nature. Over the right hemisphere, slowing was lower in voltage than that noted in the left temporal region, was less frequent and was characterized by polymorphic mixed frequency activity that was maximal at T4. The sleep background was appropriately organized with well-developed spindles and vertex waves indicative of stage 2 sleep. These sleep transients showed appropriate morphology and were bilaterally synchronous and symmetrical. Deeper stages of sleep were not observed.. Intericatal Epileptiform Activity: There were frequent epileptiform discharges noted in the left temporal region, characterized by broad sharp waves maximal at T1 and F7. Often, these were seen in clusters at 1 to 2 Hz for several seconds, and arose out of an area of underlying slowing, described above. These were frequent, occurring at least once per page, less when the patient was awake. Interictal discharges from the right were seen rarely, but when seen were characterized by sharp wave discharges from T4. Ictal Activity: At the onset of the recording, the patient was in the midst of a seizure arising from the right temporal. This was characterized by rhythmic, moderate voltage 6-7 Hz activity which was maximal at T2 and F8 but also involved T4 and T6. This activity increased into the alpha range before fading away after almost a minute. There were numerous seizures during the remainder of the recording, mostly arising from the right temporal lobe, but some independent left temporal seizures were noted as well. At the beginning of the recording, seizures were occurring every few minutes and were mostly subclinical, but later in the recording some seizures featured some clinical manifestations. At times, there were only 15 seconds in between seizures. Seizures began to decrease in frequency by 1800 on 12/22, but she continued to have intermittent clusters of seizures. Seizures in the right temporal region were typically characterized by rhythmic, sharply contoured theta activity, as described above , but sometimes began with an attenuation or an alpha pattern on the right. At times, these ictal patterns terminated with a rhythmic 2 HZ pattern punctuated by sharp wave discharges. Seizures arising from the left temporal region were much less commonly observed and consisted of an 8 to 9 Hz rhythmic pattern in the frontotemporal region (F&, T1, FP1, F3). On occasion, bilateral independent patterns were noted in the right and left temporal region with the right temporal region ictal pattern noted first. For the most part, these seizures were subclinical and the patient appeared to be sleeping during the majority By 2100 on 12/22, ictal activity calmed down considerably with 1 to 2 seizures per hour noted. From 0000 to 0200 on 12/23, she had 1 seizure arising from the left temporal region and none noted from the right. After 0200, however, seizure frequency increased again to 1 per hour, then at 0500 she began having clusters of seizures again (1 to 5/hour), again mostly arising from the right temporal region. Clinically, she would have some manifestations of these seizures including apnea or breathing through puffed cheeks, manual automatisms (rubbing blankets with right hand), unresponsiveness when nursing would try to interact with her. The monitor in her room would often alarm due to low O2 sat toward the end of a seizure. - Impression Impression: This is a markedly abnormal long-term monitoring session. At the beginning of the recording, the patient was having very frequent seizures mostly arising from the right temporal region, sometimes with right and left temporal independent patterns, and less frequently seizures arising independently from the left temporal region. These were occurring back to back, and consistent with non-convulsive status epilepticus (NCSE). With treatment, seizures reduced in frequency but did not completely resolve. The interictal background was then notable for slowing and epileptiform discharges in the left greater than right temporal regions. A slow posterior rhythm was observed better represented over the left hemisphere. These findings are consistent with localization-related NCSE arising primarily from the right temporal region which resolved, but with continued acute repetitive seizures, again primarily from the right temporal region. The background is notable for increased epileptic potential in both temporal region , with a greater density of interictal epileptiform activity arising from the left temporal region and bilateral neuronal dysfunction in the temporal regions.
[2017-12-23] MEDS: Heparin VIAL(*) 5000 UNITS/ML VIAL (FIVE THOUSAND) SUBCUT SCH ×2 (14:29→21:17)
[2017-12-23] MEDS ORDERED: [UNRECOGNIZED DRUG - REMARK] IVPB ONE ×2 (16:00)
[2017-12-23] MEDS ORDERED: PHENYTOIN IVPB ONE ×2 (16:00)
[2017-12-23] MEDS ORDERED: Phenytoin IV(*) 50 MG/ML 2 ML VIAL (100 MG) IV SCH (16:00)
[2017-12-23] MEDS ORDERED: [UNRECOGNIZED DRUG - OTHER] IVPB ONE ×2 (16:00)
[2017-12-23] MEDS ORDERED: Valproic Acid IV(*) 500 MG in NS 0.9% 100 ML* 100 ML IVPB ONE (18:30)
[2017-12-23] MEDS: levETIRAcetam IV* 1,000 MG in NS 0.9% 100 ML* 100 ML IVPB SCH (20:59)
[2017-12-23] MEDS: Nicotine Patch Removal NOTE PATCH OFF SCH (21:00)
--- NOTE | 2017-12-23 22:22 | PN ---
NEUROLOGIC PROGRESS NOTE: DATE OF VISIT: 12/23/17 - ROOM #ICU-01 PATIENT OF: Dr. Lala and Dr. Vang. CLINICAL COURSE: This 57-year-old woman is having frequent seizures. I have reviewed her chart and of note, she has had poorly controlled seizures in the past, at least in parts. Dr. Davidson in 2009 talks about her having 5 to 6 clinical seizures a day in 2008 until she was put on Dilantin. The Dilantin seemed to have controlled many, but not all of her seizures, but she was hospitalized with the toxic levels in the 50s. I spoke to Dr. Perdue this morning and she was having frequent seizures with bitemporal discharges, but most of the seizures coming out of her right temporal area, which occurred many hours overnight, but not every single hour, but could occur up to a few times an hour. We have given her 2 mg of Ativan plus an additional 500 mg of Keppra and since then, her electrographic seizures seemed to have quieted down. She is obtunded and difficult to wake at this point and cannot give further history. Apparently, before the Ativan, she was awake and could discuss her dog and her dog's name with the nurse, but was a little confused as to where she was. Temperature 98.2, pulse 86, respirations 19, blood pressure 113/68. She was sleeping and not arousable, but did move briefly to noxious stim in all extremities. Pupils are 2 mm and sluggish. Chest: Clear. Cardiovascular: Regular rate and rhythm. Abdomen: Soft. MEDICATIONS: Her meds include: 1. Her Keppra 750 mg 3 times a day with getting extra 500 this morning. 2. Lorazepamq.4 hours p.r.n. seizure with 2 mg given at 9:00. 3. Her Depakote was stopped by Dr. Lala for a peak level of 169. LABORATORY DATA: Other labs of note include white count of 10.3, hematocrit 38 , platelets of 170. An ammonia level this morning was 6.1. Normal CMP, glucose of 125. ASSESSMENT: I have discussed with Dr. Lala and we will re-discuss and with Dr. Perdue her video EEG. It seems like at least for the time being, her Ativan and additional Keppra have helped quiet her seizures down. I am rechecking a trough Depakote level now and we will probably resume the Depakote in the near future when that gets back and I am increasing her Keppra to 1000 three times a day. She has had a noncontrast CT scan, I would continue the video EEG monitoring. I do not feel any further imaging is needed right this minute. From her history, it seems like at least in the past, she has had frequent seizures, sometimes several times a day and it is unclear what her exact baseline is. We will try to quiet down her seizures for a length of time today and then we will back off some of her antiseizure medicines, if possible, to see what happens when we give her less medicines, what is her underlying mental status. Her ammonia level is high. This could be secondary to the Depakote, but it would not prevent me from giving her Depakote in the acute setting, but I would follow the ammonia level tomorrow as well and react if it elevates. If her seizures are not well controlled, then might add IV Dilantin. It seems like she has responded to this in the past, but it is unclear whether she was responding to a supratherapeutic dose or whether a dose within therapeutic range would be helpful. I discussed with Dr. Perdue whether to intubate and put her on propofol; but at this point, her seizures appear quieter in a woman, who has had very frequent daily seizures in the past. We will try to manage her without going to that next step. [id number]/[facility] #: [id number] [facility]
[2017-12-24] MEDS ORDERED: Phenytoin IV(*) 50 MG/ML 2 ML VIAL (100 MG) IV SCH (02:00)
[2017-12-24] MEDS: Heparin VIAL(*) 5000 UNITS/ML VIAL (FIVE THOUSAND) SUBCUT SCH ×3 (06:45→21:49)
[2017-12-24 07:11] LABS: Hematocrit 38 % (35-47); Hemoglobin 12.5 g/dl (12.0-16.0); Mean Corpuscular HGB Conc 33 g/dl (31-36); Mean Corpuscular Hemoglobin 32 pg (27-31); Mean Corpuscular Volume 97 fL (80-97); Mean Platelet Volume 8.6 um3 (7.4-10.4); Platelet Count 149 10^3/ul (150-450); Red Blood Count 3.86 10^6/ul (4.0-5.4); Red Cell Distribution Width 14 % (10.5-15); White Blood Count 6.2 10^3/ul (3.5-10.8)
[2017-12-24 08:06] LABS: EGFR Non-African American 103.8 (>60)
[2017-12-24] MEDS ORDERED: Valproic Acid IV(*) 500 MG in NS 0.9% 100 ML* 100 ML IVPB SCH ×2 (09:00→14:00)
--- NOTE | 2017-12-24 09:02 | PN ---
Subjective Date of Service: 12/24/17 Interval History: Pt is more awake and less disoriented today.no complaints. Ate a sandwich this aM Objective Active Medications: Acetaminophen (Tylenol Tab*) 650 mg PO Q4H PRN PRN Reason: FEVER/PAIN Albuterol (Ventolin 2.5 Mg/3 Ml Neb.Karen*) 2.5 mg INH Q2H PRN PRN Reason: SOB/WHEEZING Dextrose (D50w Syringe 50 Ml*) 25 gm IV PUSH .FOR FS<90 PRN PRN Reason: Fs < 90 Last Admin: 12/23/17 20:06 Dose: 25 gm Heparin Sodium (Porcine) (Heparin Vial(*)) 5,000 units SUBCUT Q8HR [facility] Last Admin: 12/24/17 06:45 Dose: 5,000 units Dextrose/Sodium Chloride (D5ns 0.9% 1000 Ml Bag*) 1,000 mls @ 125 mls/hr IV PER RATE [facility] Last Admin: 12/23/17 21:05 Dose: 100 mls/hr Levetiracetam 1,000 mg/ Sodium (Chloride) 110 mls @ 440 mls/hr IVPB TID [facility] Last Admin: 12/23/17 20:59 Dose: 440 mls/hr Valproic Acid 500 mg/ Sodium (Chloride) 105 mls @ 105 mls/hr IVPB TID [facility] Lactulose (Lactulose*) 30 ml PO DAILY [facility] Lorazepam (Ativan Tab(*)) 0.5 mg PO Q4H PRN PRN Reason: seizure Nicotine (Nicotine Patch 14 Mg/24 Hr*) 1 patch TRANSDERM DAILY [facility] Last Admin: 12/23/17 11:16 Dose: 1 patch Ondansetron HCl (Zofran 40 Mg Vial*) 4 mg IV Q6H PRN PRN Reason: NAUSEA Pantoprazole Sodium (Protonix Iv*) 40 mg IV Q24H [facility] Last Admin: 12/23/17 12:15 Dose: 40 mg Pharmacy Profile Note (Nicotine Patch Removal Note*) 1 note PATCH OFF 2100 [facility] Last Admin: 12/23/17 21:00 Dose: 1 note Phenytoin Sodium (Dilantin Iv(*)) 75 mg IV Q8H [facility] Phenytoin Sodium (Dilantin Iv(*)) 100 mg IV ONCE ONE Stop: 12/24/17 10:01 Vital Signs - 8 hr 12/24/17 12/24/17 12/24/17 01:00 02:00 03:00 Temperature 98.4 F 98.6 F 98.6 F Pulse Rate 78 74 76 Respiratory 22 22 19 Rate Blood Pressure 104/59 118/65 111/69 (mmHg) O2 Sat by Pulse 98 98 97 Oximetry 12/24/17 12/24/17 12/24/17 04:00 04:01 05:00 Temperature 98.6 F 98.8 F 98.6 F Pulse Rate 86 89 89 Respiratory 26 24 26 Rate Blood Pressure 131/77 (mmHg) O2 Sat by Pulse 100 99 99 Oximetry 12/24/17 12/24/17 12/24/17 06:00 07:00 07:13 Temperature 99.0 F 99.0 F 99.0 F Pulse Rate 97 86 85 Respiratory 18 22 23 Rate Blood Pressure 124/66 123/63 (mmHg) O2 Sat by Pulse 98 98 98 Oximetry 12/24/17 12/24/17 07:40 08:00 Temperature 99.0 F Pulse Rate 92 Respiratory 19 19 Rate Blood Pressure 108/69 (mmHg) O2 Sat by Pulse 98 Oximetry Oxygen Devices in Use Now: None Appearance: 57 yo Fin nAD, AAOx3 Eyes: No Scleral Icterus, PERRLA Ears/Nose/Mouth/Throat: NL Teeth, Lips, Gums, Mucous Membranes Moist Neck: NL Appearance and Movements; NL JVP, Trachea Midline Respiratory: Symmetrical Chest Expansion and Respiratory Effort, Clear to Auscultation Cardiovascular: NL Sounds; No Murmurs; No JVD, RRR Abdominal: NL Sounds; No Tenderness; No Distention Lymphatic: No Cervical Adenopathy Extremities: No Edema, No Clubbing, Cyanosis Skin: No Nodules or Sclerosis, - - large resolving ecchymosis b/l buttocks Neurological: Alert and Oriented x 3, NL Muscle Strength and Tone Result Diagrams: 12/24/17 07:01 12/24/17 07:01 Assess/Plan/Problems-Billing Assessment: 57 yo F wisebastienh h/o TBI and seizures presents with multiple seizures and now status epilepticus - Patient Problems (1) Status epilepticus Comment: cont ICU for EEG monitoring D/w DR. Mora Tx with Depakote IV/Keppra, dilantin added on 12/23/17 Due to lethargy and low PO intake, placed on Protonix IV for GI prophylaxis as well as D5 IVF. Temp 99, no evidence of infection so far (2) Hypoglycemia Comment: due to lethargy/seizures/not eating Cont D5 infusion and fingersticks Q4H (3) Increased ammonia level Comment: suspect due to depakote. will treat with Lactulose , cont to monitor (4) DVT prophylaxis Comment: HSQ Status and Disposition: inpatient
[2017-12-24] MEDS: Nicotine PATCH 14 MG/24 HR* PATCH TRANSDERM SCH (09:18)
[2017-12-24] MEDS: levETIRAcetam IV* 1,000 MG in NS 0.9% 100 ML* 100 ML IVPB SCH ×3 (09:18→20:31)
[2017-12-24] MEDS ORDERED: Phenytoin IV(*) 50 MG/ML 2 ML VIAL (100 MG) IV ONE (10:00)
--- NOTE | 2017-12-24 10:14 | EEG ---
PENITENTIARY VIDEO/EEG MONITORING - Monitoring Monitoring Start Date: 12/22/17 Current Monitoring Session: 12/23/17 at 09:53 to 12/24/17 at 08:17 EEG Clinical Indication: This is a 57 year old woman who was transferred from [facility] for seizures. Pt was first diagnosed with seizures in 2002 after a craniotomy. No information as to where that procedure was done on the skull and no incisions noticed on patient skull. Since earlier this year, PT has noticed increased seizures. Pt sometimes has an aura but not always and usually has a headache prior to an episode. Pt will be midsentence and begin staring off, unable to speak, have lip quivering and tremors. These episodes last 30 seconds- 1minute. Pt is immediately back to baseline after an episode. 0.5mg Ativan given at 0000 to break cycle. She has also had hypoglycemia to 36. A routine EEG demonstrated recurrent right temporal seizures and NCSE and long-term video EEG monitoring was requested to follow course of treatment Introduction: INTRODUCTION: The EEG was monitored from 21 scalp electrodes. Nineteen electrodes consisted of the standard parasagittal, temporal and midline leads of the International 10 -20 system. In addition, special electrodes T1 and T2 were placed. EEG data were recorded on an [employer] system with simultaneous MPEG-4 digital video recording of patient behavior. EEG recording was in a monopolar montage with all electrodes referenced to FCz. Significant behavioral events were signaled by an event button, or putative electrical seizure events were detected by a computer program. All EEG data were reviewed in their entirety on a monitor with reconstruction of montages and adjustments of sensitivity and filtering. Simultaneous patient behavior was viewed on an adjacent monitor and correlated with the EEG. - Medications Active Medications: Acetaminophen (Tylenol Tab*) 650 mg PO Q4H PRN PRN Reason: FEVER/PAIN Albuterol (Ventolin 2.5 Mg/3 Ml Neb.Karen*) 2.5 mg INH Q2H PRN PRN Reason: SOB/WHEEZING Dextrose (D50w Syringe 50 Ml*) 25 gm IV PUSH .FOR FS<90 PRN PRN Reason: Fs < 90 Last Admin: 12/23/17 20:06 Dose: 25 gm Heparin Sodium (Porcine) (Heparin Vial(*)) 5,000 units SUBCUT Q8HR [facility] Last Admin: 12/24/17 06:45 Dose: 5,000 units Dextrose/Sodium Chloride (D5ns 0.9% 1000 Ml Bag*) 1,000 mls @ 125 mls/hr IV PER RATE [facility] Last Admin: 12/23/17 21:05 Dose: 100 mls/hr Levetiracetam 1,000 mg/ Sodium (Chloride) 110 mls @ 440 mls/hr IVPB TID [facility] Last Admin: 12/24/17 09:18 Dose: 440 mls/hr Valproic Acid 500 mg/ Sodium (Chloride) 105 mls @ 105 mls/hr IVPB TID [facility] Lactulose (Lactulose*) 30 ml PO DAILY [facility] Last Admin: 12/24/17 09:18 Dose: 30 ml Lorazepam (Ativan Tab(*)) 0.5 mg PO Q4H PRN PRN Reason: seizure Nicotine (Nicotine Patch 14 Mg/24 Hr*) 1 patch TRANSDERM DAILY [facility] Last Admin: 12/24/17 09:18 Dose: 1 patch Ondansetron HCl (Zofran 40 Mg Vial*) 4 mg IV Q6H PRN PRN Reason: NAUSEA Pantoprazole Sodium (Protonix Iv*) 40 mg IV Q24H [facility] Last Admin: 12/23/17 12:15 Dose: 40 mg Pharmacy Profile Note (Nicotine Patch Removal Note*) 1 note PATCH OFF 2100 [facility] Last Admin: 12/23/17 21:00 Dose: 1 note Phenytoin Sodium (Dilantin Iv(*)) 75 mg IV Q8H [facility] The patient received a load of phenytoin IV 700mg at approximately 1610 on 12/23 - Description Background: The most notable feature of the interictal EEG was the presence of slowing in the bilateral temporal regions. This affected each temporal region independently. During this portion of the recording, the right temporal region demonstrated greater dysfunction. Over the right hemisphere, slowing was nearly continuous, of moderate voltage and was characterized by polymorphic mixed frequency activity that was maximal in the frontotemporal region. Frequently, rhythmic 2 to 3 Hz slowing maximal at F8 and T2 was noted, especially during sleep, but this pattern did not evolve. Over the left hemisphere, the slowing was frequent and characterized by 2 to 5 Hz polymorphic activity which was frequently associated with epileptiform discharges, as described below. At times , this was semi-rhythmic in nature. The waking background showed appropriate organization with defined anterior- posterior voltage and frequency gradients. There was a defined posterior dominant rhythm of 8 Hertz, which was better noted over the left hemisphere. Anteriorly, there was the expected pattern of lower voltage and more irregular theta and beta rhythms. There was excess beta activity present diffusely, consistent with medication effect. The sleep background was appropriately organized with well-developed spindles and vertex waves indicative of stage 2 sleep. These sleep transients showed appropriate morphology and were bilaterally synchronous and symmetrical. Deeper stages of sleep were not observed. Intericatal Epileptiform Activity: There were frequent epileptiform discharges noted in the left temporal region during sleep, characterized by broad sharp waves maximal at T1 and F7. Often, these were seen in clusters at 1 to 2 Hz for several seconds, and arose out of an area of underlying slowing, described above. These were frequent, occurring at least once per page. When the patient was awake, these were seen much less frequently, approximately once every few minutes. Interictal discharges from the right were seen rarely, but when seen were characterized by sharp wave discharges from T4. Ictal Activity: During the initial portion of this monitoring session, the patient continued to experience 1 to 2 seizures per hour. The majority of these arose from the right temporal region and were characterized by a buildup of low amplitude alpha activity followed by moderate voltage, rhythmic alpha/theta activity, then a transition to rhythmic 2 to 3 Hz activity. Often, as the right temporal pattern was terminated, a left temporal alpha pattern would emerge, then transition into theta activity and would gradually fade into the background without a clear termination. Seizures generally lasted 1 to 1.5 minutes. There were some independent left temporal ictal patterns as well which were characterized by a buildup of low amplitude beta and alpha activity followed by a spiking 4 Hz pattern which was maximal at T1 and ended abruptly. These seizures were shorter , around 40 seconds. Clinically, there was often no correlate to these seizures but sometimes the patient would demonstrate altered breathing patterns (through puffed cheeks), apnea causing low O2 sat monitor to alarm and manual automatisms primarily of the right hand. The patient received 700mg phenytoin IV around 1610. Subsequent to this, seizure frequency greatly decreased. While phenytoin was likely infusing, she experienced a right temporal seizure at 16:20 but then did not experience another clear ictal pattern until 22:59. After this, there were two probable right temporal seizures at 00:23 and 02:21, which were accompanied on video by low O2 sat alerting the nurse to press the event button, but the ictal patterns were not as obvious as they had been earlier in the recording. With both of these probable seizures, there was significant muscle artifact which obscured the background until a rhythmic, high voltage, 2 Hz pattern maximal at T4 was noted for about 5 seconds, followed by abrupt termination and relative suppression of activity over the right temporal region. - Impression Impression: This is an abnormal long-term monitoring session. At the beginning of the recording, the patient continued to have focal seizures arising primarily from the right temporal region with some arising from the left temporal region, about 1 to 2 times per hour. Once phenytoin was given, these greatly decreased in frequency and ceased after 02:20. The background was characterized bilateral, independent slowing in the temporal regions which was more prominent over the right temporal region, where is was also frequently rhythmic. Interictal discharges were more frequently seen over the left temporal region during sleep, but occasional discharges were also seen in the right temporal region. These findings are suggestive of acute repetitive focal seizures arising from the right>left temporal lobes at the beginning of the recording, which responded to administration of phenytoin. The background demonstrates bitemporal neuronal dysfunction with increased epileptic potential on a background of mild encephalopathy. Overall, this monitoring session is much improved compared to the previous day' s recording.
[2017-12-24] MEDS: Pantoprazole IV* 40 MG IV SCH (12:35)
[2017-12-24] MEDS: D5NS 0.9% 1000 ML BAG* 1,000 ML IV SCH ×2 (13:30→21:49)
[2017-12-24] MEDS: Phenytoin IV(*) 50 MG/ML 2 ML VIAL (100 MG) IV SCH (17:51)
[2017-12-24] MEDS: Nicotine Patch Removal NOTE PATCH OFF SCH (20:31)
--- NOTE | 2017-12-24 21:01 | PN ---
NEUROLOGIC FOLLOWUP NOTE: DATE OF SERVICE: 12/24/17 DATE OF DICTATION: 12/24/17 PATIENT OF: Dr. Branch and Dr. Lala. HISTORY: The patient aroused for portions of the day and noted that she was having at home between 10 to 20 seizures a week, most of them staring spells, plus 5 to 10 times a month she would have major motor seizures. We, therefore, suspected that she has significantly uncontrolled epilepsy and that what we were seeing is some variation of that rather than a super-weaning or rather than a process that was making things worse. I added Dilantin, she had been on it before by history from the chart, improved seizure control except she became toxic on it and it was ultimately stopped. She confirms this history with me today of both seizure frequency and that she had been on Dilantin initially without problem. She also noted to me that TOPAMAX makes her itch, but she has no other allergies to any other anticonvulsants. She is feeling better other than some mild belly pain. She says she feels less confused. I held her Depakote this morning due to an ammonia level and seeing whether she is going to have further seizures. Since she is not having further seizures, I am permanently putting her Depakote on hold, but will go back to that if needed. Her current medications include lactulose for elevated ammonia, her Keppra 1000 mg 3 times a day, Protonix 40 mg IV q. day, nicotine patch, and Dilantin 75 mg t.i.d. and she got an extra 100 mg this morning. On exam, temperature 98.8, pulse 85, respirations 18, blood pressure 139/83. She is alert. She knows she is in the hospital. She was slightly confused about the date, but then said that she came back from [place] to [place] in December, not this current year, but the meaning 2016. She was able to give a history and spoke in sentences. She appeared sleepy. Cranial nerves II through XII were nonfocal. She was clumsy in both hands, but moved all extremities with power. Chest clear. Cardiovascular: Regular rate and rhythm. Abdomen is soft with positive bowel sounds. Her labs include a white count of 6.2 today, platelet count 149. She had a normal CMP today other than an alk phos of 119, total protein was 5.9. Ammonia was 128. Her Depakote level this morning was 124. Dilantin was 7.7. From the 7th, her Keppra level was 20.1. I discussed her EEG this morning with Dr. Perdue who noted that her seizures were greatly reduced in frequency overnight. I also discussed her case with Dr. Lala who is planning on giving 1 more dose of lactulose and then following the ammonia. I feel the Depakote is causing her ammonia to be elevated and it was not clearly helping her seizures. I have stopped it now, will be seeing if her seizures return as her Depakote level falls. I gave her a slightly increased dose of Dilantin this morning because her level was 7.7. Her total protein was a little bit low. This may have been a low therapeutic level. I am trying to nudge it up a little bit higher. The 7.7 primarily reflects the bolus she had. Back in 2008, she had a very toxic level of 300 mg of Dilantin, so I am trying to not overshoot with her maintenance dose and we will be checking a level tomorrow. I discussed with the patient that she is doing better, but she still needs to be carefully watched in the hospital with her medications adjusted for the time being. Thank you for sharing her case. [id number]/[facility] #: [id number] [facility]OSPITALHaim
[2017-12-25] MEDS: Phenytoin IV(*) 50 MG/ML 2 ML VIAL (100 MG) IV SCH (02:14)
[2017-12-25] MEDS: D5NS 0.9% 1000 ML BAG* 1,000 ML IV SCH ×2 (06:31→13:07)
[2017-12-25] MEDS: Heparin VIAL(*) 5000 UNITS/ML VIAL (FIVE THOUSAND) SUBCUT SCH ×3 (06:31→20:44)
[2017-12-25 06:40] LABS: ABS Basophils 0 10^3/ul (0-0.2); ABS Eosinophils 0.3 10^3/ul (0-0.6); ABS Lymphocytes 1.4 10^3/ul (1.0-4.8); ABS Monocytes 0.6 10^3/ul (0-0.8); ABS Neutrophils 3.5 10^3/ul (1.5-7.7); ABS Nucleated RBC 0 10^3/ul; Eosinophil % 4.9 % (0-6); Hematocrit 35 % (35-47); Hemoglobin 11.7 g/dl (12.0-16.0); Lymphocyte % 24.6 % (25-47); Mean Corpuscular HGB Conc 34 g/dl (31-36); Mean Corpuscular Hemoglobin 33 pg (27-31); Mean Corpuscular Volume 97 fL (80-97); Mean Platelet Volume 8.6 um3 (7.4-10.4); Nucleated Red Blood Cells % 0.1; Platelet Count 156 10^3/ul (150-450); Red Blood Count 3.59 10^6/ul (4.0-5.4); Red Cell Distribution Width 14 % (10.5-15); White Blood Count 5.9 10^3/ul (3.5-10.8)
[2017-12-25 06:58] LABS: EGFR Non-African American 137.6 (>60)
[2017-12-25] MEDS ORDERED: Potassium Chloride LIQUID* 20 MEQ PACKET PO ONE (07:16)
[2017-12-25] MEDS: Nicotine PATCH 14 MG/24 HR* PATCH TRANSDERM SCH (07:46)
--- NOTE | 2017-12-25 08:26 | PN ---
Subjective Date of Service: 12/25/17 Interval History: Pt is feeling well. No reported seizure activity this AM. She has been up with nursing this AM; it is reported she was slightly wobbly this AM when walking. She had her rivas removed last night after she screamed out that she wanted it removed. According to nursing the patient is much more alert/oriented today than she has been. She denies any pain or SOB. Objective Active Medications: Acetaminophen (Tylenol Tab*) 650 mg PO Q4H PRN PRN Reason: FEVER/PAIN Albuterol (Ventolin 2.5 Mg/3 Ml Neb.Karen*) 2.5 mg INH Q2H PRN PRN Reason: SOB/WHEEZING Dextrose (D50w Syringe 50 Ml*) 25 gm IV PUSH .FOR FS<90 PRN PRN Reason: Fs < 90 Last Admin: 12/23/17 20:06 Dose: 25 gm Heparin Sodium (Porcine) (Heparin Vial(*)) 5,000 units SUBCUT Q8HR [facility] Last Admin: 12/25/17 06:31 Dose: 5,000 units Dextrose/Sodium Chloride (D5ns 0.9% 1000 Ml Bag*) 1,000 mls @ 125 mls/hr IV PER RATE [facility] Last Admin: 12/25/17 06:31 Dose: 125 mls/hr Levetiracetam 1,000 mg/ Sodium (Chloride) 110 mls @ 440 mls/hr IVPB TID [facility] Last Admin: 12/24/17 20:31 Dose: 440 mls/hr Lactulose (Lactulose*) 30 ml PO DAILY [facility] Last Admin: 12/25/17 07:43 Dose: 30 ml Lorazepam (Ativan Tab(*)) 0.5 mg PO Q4H PRN PRN Reason: seizure Nicotine (Nicotine Patch 14 Mg/24 Hr*) 1 patch TRANSDERM DAILY [facility] Last Admin: 12/25/17 07:46 Dose: 1 patch Ondansetron HCl (Zofran 40 Mg Vial*) 4 mg IV Q6H PRN PRN Reason: NAUSEA Pantoprazole Sodium (Protonix Iv*) 40 mg IV Q24H [facility] Last Admin: 12/24/17 12:35 Dose: 40 mg Pharmacy Profile Note (Nicotine Patch Removal Note*) 1 note PATCH OFF 2100 [facility] Last Admin: 12/24/17 20:31 Dose: 1 note Phenytoin Sodium (Dilantin Iv(*)) 75 mg IV Q8H [facility] Last Admin: 12/25/17 02:14 Dose: 75 mg Vital Signs - 8 hr 12/25/17 12/25/17 12/25/17 01:00 02:00 03:00 Temperature 99.0 F 98.8 F 98.6 F Pulse Rate 76 77 75 Respiratory 22 16 16 Rate Blood Pressure 137/83 146/80 154/89 (mmHg) O2 Sat by Pulse 97 98 97 Oximetry 12/25/17 12/25/17 12/25/17 03:56 04:00 05:00 Temperature Pulse Rate 71 76 Respiratory 19 18 19 Rate Blood Pressure 132/78 (mmHg) O2 Sat by Pulse 98 94 Oximetry 12/25/17 12/25/17 12/25/17 05:01 06:00 06:01 Temperature Pulse Rate 75 75 Respiratory 18 18 18 Rate Blood Pressure 121/74 (mmHg) O2 Sat by Pulse 99 100 Oximetry 12/25/17 12/25/17 12/25/17 06:33 07:00 07:02 Temperature Pulse Rate 77 Respiratory 20 25 22 Rate Blood Pressure 142/82 (mmHg) O2 Sat by Pulse 99 Oximetry Oxygen Devices in Use Now: None Appearance: Thin middle aged female sitting up in bed, NAD Eyes: No Scleral Icterus Ears/Nose/Mouth/Throat: Mucous Membranes Moist Respiratory: Symmetrical Chest Expansion and Respiratory Effort, Clear to Auscultation - diminshed throughout Cardiovascular: NL Sounds; No Murmurs; No JVD, RRR, No Edema Abdominal: NL Sounds; No Tenderness; No Distention Extremities: No Clubbing, Cyanosis Skin: No Nodules or Sclerosis Neurological: - - alert, oriented to place, situation Result Diagrams: 12/25/17 06:30 12/25/17 06:30 Assess/Plan/Problems-Billing Ms Briones is a 57 yo F with a h/o TBI and seizures who presents in status epilepticus. - Patient Problems (1) Status epilepticus Current Visit: Yes Status: Acute Code(s): G40.901 - EPILEPSY, UNSP, NOT INTRACTABLE, WITH STATUS EPILEPTICUS SNOMED Code(s): 661811210 Comment: The patient is off continuous EEG monitoring with no reported visual evidence of seizures this AM. Continue keppra 1000mg TID and dilantin 75mg TID. Depakote discontinued due to hyperammonemia. Pt is reportedly more alert/oriented this AM than she has been. Continue to follow mental status. Await further recommendations from neurology. (2) Hypoglycemia Current Visit: Yes Status: Acute Code(s): E16.2 - HYPOGLYCEMIA, UNSPECIFIED SNOMED Code(s): 238775352 Comment: The patient is reportedly eating/drinking better. Sugars are still on the low side given she is on D5 NS at 125ml/hr. Will decrease IVF rate to 75ml/hr and check finger sticks ACHS for now. (3) Increased ammonia level Current Visit: Yes Status: Acute Code(s): R79.89 - OTHER SPECIFIED ABNORMAL FINDINGS OF BLOOD CHEMISTRY SNOMED Code(s): 870211180 Comment: Likely secondary to depakote which has now been stopped. Will continue lactulose for now. Repeat ammonia level tomorrow AM. (4) DVT prophylaxis Current Visit: Yes Status: Acute Code(s): MTH2219 - SNOMED Code(s): 566611913 Comment: SQ heparin (5) Full code status Current Visit: Yes Status: Acute Code(s): Z78.9 - OTHER SPECIFIED HEALTH STATUS SNOMED Code(s): 537577885 Status and Disposition: .
[2017-12-25] MEDS: levETIRAcetam IV* 1,000 MG in NS 0.9% 100 ML* 100 ML IVPB SCH (09:44)
--- NOTE | 2017-12-25 10:44 | CONSULT ---
Consult Consult: Mrs. Briones was evaluted by me this morning. She reports no seizures overnight and is tolerating the current AED therapy. Please change the Keppra and phenyoin from IV to PO. Agree with transfer to a medical unit. I will continue to follow. Complete progress note dictated. Coleen Krueger MD
[2017-12-25] MEDS: NS 0.9% IV SCH ×2 (11:43→19:01)
[2017-12-25] MEDS: PHENYTOIN IV SCH ×2 (11:43→19:01)
[2017-12-25] MEDS: levETIRAcetam TAB* 500 MG PO SCH ×2 (13:14→20:44)
--- NOTE | 2017-12-25 13:24 | EEG ---
[facility] VIDEO/EEG MONITORING - Monitoring Monitoring Start Date: 12/22/17 Current Monitoring Session: 12/24/17 at 08:22 to 19:35 EEG Clinical Indication: This is a 57 year old woman who was transferred from [facility] for seizures. Pt was first diagnosed with seizures in 2002 after a craniotomy. No information as to where that procedure was done on the skull and no incisions noticed on patient skull. Since earlier this year, PT has noticed increased seizures. Pt sometimes has an aura but not always and usually has a headache prior to an episode. Pt will be midsentence and begin staring off, unable to speak, have lip quivering and tremors. These episodes last 30 seconds- 1minute. Pt is immediately back to baseline after an episode. 0.5mg Ativan given at 0000 to break cycle. She has also had hypoglycemia to 36. A routine EEG demonstrated recurrent right temporal seizures and NCSE and long-term video EEG monitoring was requested to follow course of treatment Introduction: INTRODUCTION: The EEG was monitored from 21 scalp electrodes. Nineteen electrodes consisted of the standard parasagittal, temporal and midline leads of the International 10 -20 system. In addition, special electrodes T1 and T2 were placed. EEG data were recorded on an [employer] system with simultaneous MPEG-4 digital video recording of patient behavior. EEG recording was in a monopolar montage with all electrodes referenced to FCz. Significant behavioral events were signaled by an event button, or putative electrical seizure events were detected by a computer program. All EEG data were reviewed in their entirety on a monitor with reconstruction of montages and adjustments of sensitivity and filtering. Simultaneous patient behavior was viewed on an adjacent monitor and correlated with the EEG. - Medications Active Medications: Acetaminophen (Tylenol Tab*) 650 mg PO Q4H PRN PRN Reason: FEVER/PAIN Albuterol (Ventolin 2.5 Mg/3 Ml Neb.Karen*) 2.5 mg INH Q2H PRN PRN Reason: SOB/WHEEZING Dextrose (D50w Syringe 50 Ml*) 25 gm IV PUSH .FOR FS<90 PRN PRN Reason: Fs < 90 Last Admin: 12/23/17 20:06 Dose: 25 gm Heparin Sodium (Porcine) (Heparin Vial(*)) 5,000 units SUBCUT Q8HR [facility] Last Admin: 12/25/17 06:31 Dose: 5,000 units Dextrose/Sodium Chloride (D5ns 0.9% 1000 Ml Bag*) 1,000 mls @ 75 mls/hr IV PER RATE [facility] Phenytoin Sodium 75 mg/ Sodium (Chloride) 15 mls @ 30 mls/hr IV Q8H [facility] PRN Reason: Protocol Last Admin: 12/25/17 11:43 Dose: 30 mls/hr Lactulose (Lactulose*) 30 ml PO DAILY [facility] Last Admin: 12/25/17 07:43 Dose: 30 ml Levetiracetam (Keppra Tab*) 1,000 mg PO TID [facility] Lorazepam (Ativan Tab(*)) 0.5 mg PO Q4H PRN PRN Reason: seizure Nicotine (Nicotine Patch 14 Mg/24 Hr*) 1 patch TRANSDERM DAILY [facility] Last Admin: 12/25/17 07:46 Dose: 1 patch Omeprazole (Prilosec Cap*) 20 mg PO DAILY@0600 [facility] Ondansetron HCl (Zofran 40 Mg Vial*) 4 mg IV Q6H PRN PRN Reason: NAUSEA Pharmacy Profile Note (Nicotine Patch Removal Note*) 1 note PATCH OFF 2100 [facility] Last Admin: 12/24/17 20:31 Dose: 1 note - Description Background: The most notable feature of the interictal EEG was the presence of slowing in the bilateral temporal regions. This affected each temporal region independently but the right temporal region demonstrated greater dysfunction. Over the right hemisphere, slowing was nearly continuous, of moderate voltage and was characterized by polymorphic mixed frequency activity that was maximal in the frontotemporal region. Frequently, rhythmic 2 to 3 Hz slowing maximal at F8 and T2 was noted, especially during sleep, but this pattern did not evolve. Over the left hemisphere, the slowing was frequent and characterized by 2 to 5 Hz polymorphic activity which was frequently associated with epileptiform discharges, as described below. At times, this was semi-rhythmic in nature. The waking background showed appropriate organization with defined anterior- posterior voltage and frequency gradients. There was a defined posterior dominant rhythm of 8 Hertz, which was better noted over the left hemisphere. Anteriorly, there was the expected pattern of lower voltage and more irregular theta and beta rhythms. There was excess beta activity present diffusely, consistent with medication effect. The sleep background was appropriately organized with well-developed spindles and vertex waves indicative of stage 2 sleep. These sleep transients showed appropriate morphology and were bilaterally synchronous and symmetrical. Deeper stages of sleep were not observed. Intericatal Epileptiform Activity: There were frequent epileptiform discharges noted in the left temporal region during sleep, characterized by broad sharp waves maximal at T1 and F7. Often, these were seen in clusters at 1 to 2 Hz for several seconds, and arose out of an area of underlying slowing, described above. These were frequent, occurring at least once per page. When the patient was awake, these were seen much less frequently, approximately once every few minutes. Interictal discharges from the right were seen rarely, but when seen were characterized by sharp wave discharges from T4. Ictal Activity: No definitive ictal patterns - Impression Impression: This is an abnormal long-term video EEG session. The background is characterized by bilateral, independent slowing affecting the temporal regions, greater on the right, as well as epileptiform discharges emanating from the temporal regions, which are much more frequently seen from the left temporal region, but also occasionally from the right. The background otherwise is notable for a slow posterior rhythm. There are no definitive ictal patterns during this recording. These findings are suggestive of bilateral neuronal dysfunction in the temporal regions, right greater than left, associated with increased epileptic potential bilaterally as well. This occurs on a background of a mild, non-specific encephalopathy. There are no seizures during this portion of the monitoring.
--- NOTE | 2017-12-25 14:09 | PN ---
NEUROLOGY PROGRESS REPORT: DATE OF SERVICE: 12/25/17 PRIMARY PROVIDER: Su Quiroga DO BRIEF HISTORY OF PRESENT ILLNESS: This is a 57-year-old right handed female who has localization related traumatic-induced epilepsy since 2002. She has refractory epilepsy and poor seizure control. She presented on 12/21/17 with recurrent breakthrough seizures. She was evaluated by Dr. Jose Vang, who ordered an EEG and found that the patient was having seizures. The seizures were described as episodes of confusion and loss of awareness. The patient presented on the following antiepileptic drugs; Briviact, Keppra, and was started on valproic acid. However, she continued to have seizure on the Depakote and developed hyperammonemia. She required lactulose. Depakote was discontinued. She was started back on phenytoin. The patient was on phenytoin in the past and had the best response; however, was discontinued due to phenytoin toxicity with a dose of 100 mg in the morning and 200 mg at night. She is currently taking 75 mg 3 times daily. Her most recent total phenytoin level that was done on 12/25/17 and resulted today was 13. SUBJECTIVE: The patient is resting in bed comfortably. According to the nurse , the patient was able to stand and walk with minimal assist. She used the bathroom independently. She has not had any seizure-like activity since Monday evening. She is tolerating the combination of levetiracetam 1000 mg 3 times a day, and phenytoin 100 mg daily and 75 mg twice daily. MEDICATIONS: 1. Acetaminophen. 2. Albuterol. 3. Heparin subcutaneous injection 5000 units. 4. Levetiracetam 1000 mg IV t.i.d. 5. Lorazepam 0.5 mg every 4 hours for seizures. 6. Omeprazole. 7. Ondansetron. 8. Phenytoin 75 mg IV every 8 hours scheduled. REVIEW OF SYSTEMS: The patient has mild frontal headaches that is 4/5 in intensity with associated photophobia and nausea. She does have a history of migraine headaches in the past. She denied any visual disturbance, swallowing difficulty, chest pain, shortness of breath, or palpitations. PHYSICAL EXAMINATION: Vitals: Temperature of 98.6 degrees Fahrenheit, heart rate 83, respiratory rate 24, oxygen saturation 97% on room air, blood pressure is 139/88. General: Mild ill-appearing female in no acute distress. She is frail. She is cooperative with the examiner. She has very subtle psychomotor slowing. Head is atraumatic, normocephalic without any obvious abnormalities. Eyes: Conjunctivae/corneals are clear. Neck is supple and symmetrical. Lungs are clear to auscultation bilaterally. Cardiovascular: Regular rhythm with normal S1, S2. Extremities: Normal range of motion with no cyanosis. Skin: No skin lesions or lacerations. Psych: Affect is broad and normal mood. Neurological: Mental status awake and alert, oriented to person, place, time and general circumstance. She has got mild psychomotor slowing. Cranial Nerves : Pupils are equal, round and reactive to light with extraocular muscles are intact. Pupils are mid range and reactive to light and constricting to light, measuring 4 mm, constricting to 3 mm. No facial asymmetry. Tongue is symmetric and midline. Motor: No abnormal motor movements, no pronator drift. Normal bulk and tone throughout. She has full strength throughout the upper and lower extremities. Reflexes are 2+ throughout the upper and lower extremities. Sensation is intact to light touch in both arms and legs. Coordination: Normal [id number], but a little slow and has a tint bilaterally. Gait and station was reported to be normal with minimal assist on ambulation. LABORATORY DATA: As discussed above. Laboratory, imaging and other diagnostics were as reviewed above. She does not have any new intracranial imaging. ASSESSMENT: 1. Localization related refractory epilepsy with multiple clinical (episodes of confusion) electrographic seizures - the patient was hospitalized and required admission to the intensive care unit and long-term video EEG monitoring over the last few days. She is currently not having any seizure like episodes. Her mentation is improving. She is tolerating the new regimen with phenytoin 75 mg 3 times daily. There was a report that the patient received a slightly increased dose of phenytoin, but I do not see that documented in the MAR. Therefore, I will continue the 75 mg t.i.d. dose. We will switch from IV to p.o. Depending on the phenytoin level tomorrow, if the levels are subtherapeutic, then we will increase the phenytoin to 75 mg in the morning, 75 mg in the afternoon, 100 mg at night. We will need another phenytoin level drawn within at least 1 week and then 3 weeks out to make sure she is not toxic. Given her BMI, she cannot tolerate the 300 mg dose. Please continue levetiracetam 1000 mg 3 times daily. Please switch IV to p.o. I have ordered a total phenytoin level and levetiracetam level for tomorrow. 2. Hyperammonemia. The patient does not seem to be in hepatic encephalopathy. I suspect this was related to the Depakote. Her current ammonia level is 65. No need to continue monitoring the ammonia level since the patient is asymptomatic. 3. Hypokalemia - deferred to the primary team. DISPOSITION: The patient resides alone. We will need to consult case management/manager social work to arrange some home healthcare and some assist especially once she is discharged. The patient is requesting to be discharged soon. We discussed seizure precautions and practising good seizure hygiene. She does not operate heavy machinery. She does not drive. She should not be climbing rooftops, ladders or bathe unattended. She verbalized agreement. I will continue to follow. [id number]/[facility] #: [id number] PREM
[2017-12-25] MEDS: Acetaminophen TAB* 325 MG PO PRN (18:16)
[2017-12-25] MEDS: Nicotine Patch Removal NOTE PATCH OFF SCH (20:56)
[2017-12-26] MEDS: PHENYTOIN IV SCH (02:19)
[2017-12-26] MEDS: NS 0.9% IV SCH (02:19)
[2017-12-26] MEDS: D5NS 0.9% 1000 ML BAG* 1,000 ML IV SCH (02:56)
[2017-12-26] MEDS: Heparin VIAL(*) 5000 UNITS/ML VIAL (FIVE THOUSAND) SUBCUT SCH ×3 (05:40→21:25)
[2017-12-26] MEDS: Omeprazole CAP* 20 MG PO SCH (05:41)
[2017-12-26 05:59] LABS: EGFR Non-African American 105.8 (>60)
[2017-12-26] MEDS: Nicotine PATCH 14 MG/24 HR* PATCH TRANSDERM SCH (09:18)
[2017-12-26] MEDS: levETIRAcetam TAB* 500 MG PO SCH ×3 (09:20→21:20)
--- NOTE | 2017-12-26 09:46 | PN ---
Subjective Date of Service: 12/26/17 Interval History: Pt is feeling well today. She tells me she has not had any seizure activity, she reportedly told the neurologist that she had an episode of confusion last night which could be seizure activity. She feels weak but she has been able to walk to the bathroom. Objective Active Medications: Acetaminophen (Tylenol Tab*) 650 mg PO Q4H PRN PRN Reason: FEVER/PAIN Last Admin: 12/25/17 18:16 Dose: 650 mg Albuterol (Ventolin 2.5 Mg/3 Ml Neb.Karen*) 2.5 mg INH Q2H PRN PRN Reason: SOB/WHEEZING Dextrose (D50w Syringe 50 Ml*) 25 gm IV PUSH .FOR FS<90 PRN PRN Reason: Fs < 90 Last Admin: 12/23/17 20:06 Dose: 25 gm Heparin Sodium (Porcine) (Heparin Vial(*)) 5,000 units SUBCUT Q8HR [facility] Last Admin: 12/26/17 05:40 Dose: 5,000 units Lactulose (Lactulose*) 30 ml PO 0900,1600 [facility] Stop: 12/26/17 22:00 Levetiracetam (Keppra Tab*) 1,000 mg PO TID [facility] Last Admin: 12/26/17 09:20 Dose: 1,000 mg Lorazepam (Ativan Tab(*)) 0.5 mg PO Q4H PRN PRN Reason: seizure Nicotine (Nicotine Patch 14 Mg/24 Hr*) 1 patch TRANSDERM DAILY [facility] Last Admin: 12/26/17 09:18 Dose: 1 patch Omeprazole (Prilosec Cap*) 20 mg PO DAILY@0600 [facility] Last Admin: 12/26/17 05:41 Dose: 20 mg Ondansetron HCl (Zofran 40 Mg Vial*) 4 mg IV Q6H PRN PRN Reason: NAUSEA Pharmacy Profile Note (Nicotine Patch Removal Note*) 1 note PATCH OFF 2100 [facility] Last Admin: 12/25/17 20:56 Dose: 1 note Phenytoin Sodium (Dilantin Infatabs Chew Tab(*)) 75 mg PO 0900,1400 [facility] Phenytoin Sodium (Dilantin Infatabs Chew Tab(*)) 100 mg PO BEDTIME [facility] Vital Signs - 8 hr 12/26/17 12/26/17 12/26/17 02:26 02:39 02:57 Pulse Rate 78 73 78 Respiratory 18 16 Rate Blood Pressure 117/57 112/55 108/53 (mmHg) O2 Sat by Pulse 96 95 94 Oximetry 12/26/17 03:40 Pulse Rate 79 Respiratory 18 Rate Blood Pressure 115/56 (mmHg) O2 Sat by Pulse 98 Oximetry Oxygen Devices in Use Now: None Appearance: Middle aged female sitting up in bed, NAD Eyes: No Scleral Icterus Ears/Nose/Mouth/Throat: Mucous Membranes Moist Respiratory: Symmetrical Chest Expansion and Respiratory Effort, Clear to Auscultation Cardiovascular: NL Sounds; No Murmurs; No JVD, RRR, No Edema Abdominal: NL Sounds; No Tenderness; No Distention Extremities: No Clubbing, Cyanosis Skin: No Nodules or Sclerosis Neurological: Alert and Oriented x 3 Result Diagrams: 12/25/17 06:30 12/26/17 05:32 Assess/Plan/Problems-Billing Ms Briones is a 57 yo F with a h/o TBI and seizures who presents in status epilepticus. - Patient Problems (1) Status epilepticus Current Visit: Yes Status: Acute Code(s): G40.901 - EPILEPSY, UNSP, NOT INTRACTABLE, WITH STATUS EPILEPTICUS SNOMED Code(s): 458917500 Comment: Pt had a questionable episode last evening. Because of this Dr. Krueger has recommended increasing the phenytoin to 75mg AM, afternoon and 100mg PM. Continue keppra 1000mg TID. The patient is more awake now than she has been. She seems clearer in thought this AM. Continue to follow mental status. She will need phenytoin level in 1 week and again in 3 weeks. Follow up with Dr. Branch as outpatient. She will be ready for rehab tomorrow. (2) Hypoglycemia Current Visit: Yes Status: Acute Code(s): E16.2 - HYPOGLYCEMIA, UNSPECIFIED SNOMED Code(s): 196017135 Comment: Sugars remain stable. Stop D5 NS and monitor sugars. (3) Increased ammonia level Current Visit: Yes Status: Acute Code(s): R79.89 - OTHER SPECIFIED ABNORMAL FINDINGS OF BLOOD CHEMISTRY SNOMED Code(s): 237290215 Comment: Likely secondary to depakote which has now been stopped. Will continue lactulose through today and then stop. (4) DVT prophylaxis Current Visit: Yes Status: Acute Code(s): QPA7885 - SNOMED Code(s): 527954607 Comment: SQ heparin (5) Full code status Current Visit: Yes Status: Acute Code(s): Z78.9 - OTHER SPECIFIED HEALTH STATUS SNOMED Code(s): 417250643 Status and Disposition: .
[2017-12-26] MEDS: Phenytoin CHEW TAB(*) 50 MG PO SCH ×2 (10:54→12:57)
[2017-12-26] MEDS: Artificial Tears* 15 ML BTL BOTH EYES PRN (17:34)
[2017-12-26] MEDS: Acetaminophen TAB* 325 MG PO PRN (17:37)
[2017-12-26] MEDS ORDERED: Phenytoin CHEW TAB(*) 50 MG PO SCH (21:00)
[2017-12-26] MEDS: Nicotine Patch Removal NOTE PATCH OFF SCH (21:20)
--- NOTE | 2017-12-27 03:36 | PN ---
NEUROLOGY PROGRESS NOTE: DATE OF SERVICE: 12/26/17 PRIMARY PROVIDER: Su Quiroga DO REASON FOR CONSULTATION: Neurology is following for the evaluation of seizures. CHIEF COMPLAINT: "I may have had too much excitement when I saw my family yesterday." SUBJECTIVE: The patient reports that she had an episode and was not sure if it was seizure related. She was excited to see her sister and her brother come and visit her last night. She became slightly confused and drowsy. This lasted for a few minutes to 1 hour. She is definitely more awake and cooperative on examination today. She is feeding herself. She is able to stand and use the bathroom unassisted with a walker. She denied any seizure activity today. REVIEW OF SYSTEMS: The patient denied any chest pain, shortness of breath, palpitation. She denied any headaches or visual disturbance. She denied any focal weakness, but feels generalized malaise and fatigue. MEDICATIONS: 1. Acetaminophen 650 mg every 4 hours as needed for fever. 2. Albuterol 2.5 mg every 2 hours as needed for wheezing. 3. Dextrose. 4. Heparin 5000 units subcutaneous every 8 hours. 5. Lactulose 30 mL p.o. at 9 and 1600 today. 6. Levetiracetam 1000 mg p.o. 3 times daily. 7. Lorazepam 0.5 mg p.o. every 4 hours as needed for seizures. 8. Omeprazole 20 mg p.o. 9. Ondansetron 4 mg IV every 6 hours as needed for nausea. 10. Phenytoin 75 mg 3 times daily. This has been changed to 75 mg in the morning and 75 mg in the afternoon and 100 mg at night time. PHYSICAL EXAMINATION: Vitals: Temperature of 98.3, heart rate of 79, respiratory rate of 18, oxygen saturation 98% on room air, blood pressure 115/ 56. General: A frail-appearing, chronically-ill female, in no acute distress. She is well nourished. Head is atraumatic, normocephalic. Eyes: Conjunctivae/corneas are clear. Neck is supple and symmetrical with no carotid bruits. Lungs are clear to auscultation bilaterally. Cardiovascular: Regular rate and rhythm. Extremities: Normal range of motion with no cyanosis. Psych: Flat affect and normal mood. Neurological: Mental status: She is awake and alert and oriented to person, place, time, and general circumstances. She has some psychomotor slowing, but I wonder what her baseline is. Cranial Nerves: Pupils are equal, round, and reactive to light. Extraocular muscles are intact. No facial asymmetry. Sensation is intact in the forehead, cheeks, and jaw region bilaterally. Tongue is symmetrical and midline with no anterior fasciculation. Motor: No abnormal movements or pronator drift. She is able to move all 4 extremities symmetrically against some resistance, but she is fatigued, hence there is some low activation due to effort. Reflexes are 2 throughout. Sensation is intact to light touch throughout. Coordination: Normal [id number] bilaterally. Gait and Station: Wide based, required a walker. LABS, IMAGING, AND OTHER DIAGNOSTIC TESTING: Laboratory data from overnight showed sodium of 138, glucose of 107, calcium 8.5; ammonia increased from 62 to 73. Phenytoin level is 13.8. She was on 75 mg of Phenytoin 3 times daily. ASSESSMENT: 1. Localization related to epilepsy, intractable, who presented with status epilepticus - the patient possibly had another episode last night, but it is unclear. There were no witnesses around. The nurses did not think that she had a seizure-like event. Earlier on, she informed Dr. Quiroga that she did not have any seizures. I recommend increasing her phenytoin dose to 75 mg in the morning and then afternoon, and 100 mg at night time, to slightly bump her total phenytoin level to close to 18-20 range. I have ordered a phenytoin level for tomorrow morning. Continue levetiracetam 1000 mg 3 times daily. She is currently taking her medication orally. The patient is ready for rehabilitation. Please make sure she obtains a phenytoin level in 1 week and in 3 weeks to make sure she is not toxic. 2. Hyperammonemia - the patient is asymptomatic, although appears slightly drowsy. Dr. Quiroga will be giving her few more doses of lactulose. 3. History of traumatic brain injury. 4. I will continue to follow. TIME SPENT: I spent a total of 25 minutes and greater than 50% of that was spent directly reviewing the medical chart, examining the patient, and discussing the treatment plan and prognosis. She is aware and verbalized understanding when we discussed seizure precautions and good seizure hygiene. She should not be operating any heavy machinery, climbing roof tops, or swimming unattended. [id number]/[facility] #: [id number] [facility]
[2017-12-27] MEDS: Artificial Tears* 15 ML BTL BOTH EYES PRN ×2 (06:09→09:27)
[2017-12-27] MEDS: Omeprazole CAP* 20 MG PO SCH (06:10)
[2017-12-27] MEDS: Heparin VIAL(*) 5000 UNITS/ML VIAL (FIVE THOUSAND) SUBCUT SCH ×2 (06:10→14:30)
[2017-12-27] MEDS: Phenytoin CHEW TAB(*) 50 MG PO SCH ×2 (09:28→14:29)
[2017-12-27] MEDS: levETIRAcetam TAB* 500 MG PO SCH ×2 (09:28→14:29)
[2017-12-27] MEDS: Nicotine PATCH 14 MG/24 HR* PATCH TRANSDERM SCH (09:29)
[2017-12-27 13:14] VITALS: BP 106/57
--- NOTE | 2017-12-27 13:15 | DS ---
CC: JAVY Eckert * DATE OF ADMISSION: 12/21/2017. DATE OF DISCHARGE: 12/27/2017. PRIMARY CARE PHYSICIAN: JAVY Eckert. NEUROLOGIST: Dr. Branch. PRINCIPAL DIAGNOSIS: Status epilepticus. SECONDARY DIAGNOSES: 1. Depression. 2. COPD. DISCHARGE MEDICATIONS: 1. Keppra 1,000 mg p.o. t.i.d. (new dose). 2. Phenytoin 75 mg p.o. at 0900 and 1400, 100 mg p.o. at bedtime. 3. Nicotine patch one patch topically daily. HOSPITAL COURSE: Ms. Briones is a 57-year-old female who has a history of a traumatic brain injury with subsequent hematoma development requiring evacuation who has had seizures since. She has had uncontrolled seizures. She recently moved back to the area and saw Dr. Branch in follow-up. She has been taking Keppra and Briviact. Over the two to three days prior to admission, she had been having increasing seizure-like activity. The patient was admitted for management of her seizures. She ultimately required placement in the ICU for long-term EEG monitoring. The patient was not controlled on Keppra alone. At attempt was made to add Depakote; however, she became supratherapeutic and developed significant hyperammonemia. The Depakote was discontinued. Phenytoin was then added. With the addition of Phenytoin and the increase in Keppra, the patient's seizures have been under control. The patient's most recent Phenytoin level was in the normal range at 19.1. This is a significant jump from 12/26/2017 when her level was 13.8. The patient's Phenytoin dose had been increased on the evening of 12/26/2017. She will need a Phenytoin level obtained on 01/03/2018 and 01/17/2018 to ensure she does not become toxic. The patient feels that she needs subacute rehab to regain strength. This was corroborated by Physical Therapy. The patient has been offered a bed for [facility] today and will be discharged there this afternoon. PHYSICAL EXAMINATION: On the day of discharge, the patient is awake, alert, and oriented, sitting up in a chair, eating lung in no acute distress. Cardiac exam reveals a normal S1, S2 with a regular rate and rhythm. Lungs are clear to auscultation bilaterally. Abdomen is soft, nontender, nondistended. The patient moves all four extremities symmetrically. FOLLOW-UP CONCERNS: The patient is being discharged to [facility] today, . ACTIVITY LEVEL: As tolerated. DIET: Regular. CONDITION ON DISCHARGE: Stable. Thirty-five minutes were spent discharging this patient. [id number]/[facility] #: [id number] [id number]
== END 2017-12-27 15:40 | DRG 53 ==
LOC: ED 18:41 → MEDTELE 20:11 → OBSVTOIN 12-22 10:29 → ICU 12-22 11:16 → MED 12-25 12:18
PROVIDERS: ADMIT Hospitalist; ATTEND Hospitalist
PROC: 4A00X4Z Measurement of Central Nervous Electrical Activity, External Approach (ICD-10-PCS; principal; 2017-12-22)
DX: G40.901 Epilepsy, unspecified, not intractable, with status epilepticus (principal); E72.20 Disorder of urea cycle metabolism, unspecified; F32.9 Major depressive disorder, single episode, unspecified; J44.9 Chronic obstructive pulmonary disease, unspecified; F17.210 Nicotine dependence, cigarettes, uncomplicated; R58 Hemorrhage, not elsewhere classified; E16.2 Hypoglycemia, unspecified; G43.909 Migraine, unspecified, not intractable, without status migrainosus; T42.6X5A Adverse effect of other antiepileptic and sedative-hypnotic drugs, initial encounter; Y92.239 Unspecified place in hospital as the place of occurrence of the external cause; Z88.8 Allergy status to other drugs, medicaments and biological substances; Z98.51 Tubal ligation status; Z83.3 Family history of diabetes mellitus; Z80.9 Family history of malignant neoplasm, unspecified; Z87.820 Personal history of traumatic brain injury
CPT/HCPCS: 36415; 72192; 80048; 80053; 80076; 80164; 80177; 80185; 81003; 81015; 82140; 82550; 84146; 84443; 85025; 85027; 85610; 86140; 87086; 95819; 95951; 95953; 99283; A9270-GY; G8987-GO-CK; G8988-GO-CI; J0696; J1165; J1644; J2060